=== PATIENT | male | born 1990 | race Hispanic/Latino ===

== ENCOUNTER 2016-10-09 22:11 | Emergency (ER) | payer SELFPAY ==
[2016-10-09] MEDS ORDERED: GEODON IM ONE (23:51)
--- NOTE | 2016-10-10 00:05 | Emergency Department Report ---
ED Psych HPI - General Chief Complaint: Recheck/Abnormal Lab/Rx Stated Complaint: MH EVAL Time Seen by Provider: 10/09/16 23:27 Source: patient Mode of arrival: Ambulatory Limitations: No Limitations - History of Present Illness Initial Comments: 25-year-old male presents to the emergency department via EMS for mental health evaluation. Patient states that he has been out of his medication for 4 days. He states he does not have the money to get the medication. Patient reports having suicidal thoughts. He states that he attempted to commit suicide by jumping in front of a moving vehicle. There are no other complaints. MD Complaint: suicidal ideation -: Gradual, days(s) (4) Associated Psychiatric Symptoms: suicidal ideation History of same: Yes Quality: constant Improves With: none Worsens With: none Context: not taking psychiatric Associated Symptoms: denies other symptoms Treatments Prior to Arrival: none If Self Harm: admits thoughts of, has plan, has acted on plan - Related Data Home Medications Medication Instructions Recorded Confirmed Last Taken Citalopram [celeXA] 20 mg PO QDAY 07/22/16 07/22/16 Unknown traZODone [Desyrel] 100 mg PO QHS 07/22/16 07/22/16 Unknown Allergies Allergy/AdvReac Type Severity Reaction Status Date / Time No Known Allergies Allergy Verified 09/24/13 20:06 ED Review of Systems ROS: Stated complaint: MH EVAL Other details as noted in HPI Comment: All other systems reviewed and negative Psychiatric: as per HPI, suicidal thoughts ED Past Medical Hx - Past Medical History Previous Medical History?: Yes Hx Hypertension: No Hx Heart Attack/AMI: No Hx Congestive Heart Failure: No Hx Diabetes: No Hx Deep Vein Thrombosis: No Hx Pulmonary Embolism: No Hx Liver Disease: No Hx Renal Disease: No Hx Arthritis: No Hx Seizures: No Hx Kidney Stones: No Hx Psychiatric Treatment: Yes (BIPOLAR/SCHIZO/PANIC ATTACKS/ANXIETY/DEPRESSION) Hx Asthma: No Hx COPD: No Hx Tuberculosis: No Hx Dementia: No Hx HIV: No - Surgical History Hx Coronary Stent: No Hx Pacemaker: No Hx Internal Defibrillator: No - Family History Family history: no significant - Social History Smoking Status: Never Smoker Substance Use Type: Alcohol - Medications Home Medications: Home Medications Medication Instructions Recorded Confirmed Last Taken Type Citalopram [celeXA] 20 mg PO QDAY 07/22/16 07/22/16 Unknown History traZODone [Desyrel] 100 mg PO QHS 07/22/16 07/22/16 Unknown History ED Physical Exam - General Limitations: No Limitations General appearance: alert, appears intoxicated - Head Head exam: Present: atraumatic, normocephalic - Eye Eye exam: Present: normal appearance, PERRL, EOMI - ENT ENT exam: Present: normal exam, normal orophraynx, mucous membranes moist - Neck Neck exam: Present: normal inspection, full ROM. Absent: tenderness - Respiratory Respiratory exam: Present: normal lung sounds bilaterally. Absent: respiratory distress - Cardiovascular Cardiovascular Exam: Present: regular rate, normal rhythm, normal heart sounds - GI/Abdominal GI/Abdominal exam: Present: soft, normal bowel sounds. Absent: distended, tenderness - Extremities Exam Extremities exam: Present: normal inspection, full ROM. Absent: tenderness - Back Exam Back exam: Present: normal inspection, full ROM. Absent: tenderness - Neurological Exam Neurological exam: Present: alert, oriented X3. Absent: motor sensory deficit - Psychiatric Psychiatric exam: Present: flat affect, suicidal ideation, other (Paranoid thoughts (repeatedly asks if I am going to kill him)) - Skin Skin exam: Present: warm, dry, intact ED Course Vital Signs 10/09/16 23:00 Temperature 97.8 F Pulse Rate 125 H Respiratory 16 Rate Blood Pressure 120/72 O2 Sat by Pulse 97 Oximetry - Reevaluation(s) Reevaluation #1: 10/10/16 00:04 Form 1013 has been signed and placed on the patient's chart. Labs have been ordered. Patient will be assessed by mental health for inpatient placement. ED Medical Decision Making - Differential Diagnosis medication noncompliance, schizophrenia, suicidal ideation Critical care attestation.: If time is entered above; I have spent that time in minutes in the direct care of this critically ill patient, excluding procedure time. ED Disposition Clinical Impression: Suicidal ideations Schizophrenia Qualifiers: Schizophrenia type: unspecified Qualified Code(s): F20.9 - Schizophrenia, unspecified Disposition: DC/TX PSY HOSP/PSY UNIT Is pt being admited?: No Condition: Stable Time of Disposition: 00:06
[2016-10-10 00:40] LABS: Urine Drugs of Abuse Note Disclamer
[2016-10-10 00:43] LABS: Basophils % (Auto) 0.7 % (0.0-1.8); Eosinophils % (Auto) 2.1 % (0.0-4.3); Hematocrit 45.7 % (35.5-45.6); Hemoglobin 15.6 gm/dl (11.8-15.2); Mean Corpuscular HGB Conc 34 % (32-34); Mean Corpuscular Hemoglobin 30 pg (28-32); Mean Corpuscular Volume 88 fl (84-94); Platelet Count 209 K/mm3 (140-440); Red Blood Count 5.17 M/mm3 (3.65-5.03); Red Cell Distribution Width 12.6 % (13.2-15.2); White Blood Count 11.2 K/mm3 (4.5-11.0)
[2016-10-10 01:03] LABS: Bilirubin,Urine NEG (Negative); Blood,Urine NEG (Negative); Ketones,Urine NEG (Negative); Leukocyte Esterase,Urine NEG (Negative); Mucus,Urine FEW /HPF; Nitrite,Urine NEG (Negative); Protein,Urine <15 mg/dL mg/dL (Negative); Urobilinogen,Urine < 2.0 mg/dL (<2.0)
[2016-10-10 01:04] LABS: Anion Gap 20 mmol/L; BUN/Creatinine Ratio 16.25; Blood Urea Nitrogen 13 mg/dL (9-20); Calcium 9.4 mg/dL (8.4-10.2); Carbon Dioxide 28 mmol/L (22-30); Chloride 95.3 mmol/L (98-107); Glucose 121 mg/dL (75-100); Potassium 3.8 mmol/L (3.6-5.0); Sodium 139 mmol/L (137-145)
[2016-10-10] MEDS: celeXA PO SCH (09:44)
--- NOTE | 2016-10-10 17:03 | Emergency Department Report ---
Blank Doc - Documentation Documentation: Nursing note and vital signs reviewed. Patient is awaiting acceptance. Patient is stable.
[2016-10-10] MEDS: DESYREL PO SCH (23:10)
--- NOTE | 2016-10-11 05:44 | Event Note ---
Date: 10/11/16 Vital signs reviewed. No recent events. Awaiting psychiatric placement. Vital Signs 10/09/16 10/10/16 10/10/16 23:00 07:16 07:30 Temperature 97.8 F 98.3 F Pulse Rate 125 H 86 Respiratory 16 20 20 Rate Blood Pressure 120/72 Blood Pressure 134/84 [Right] O2 Sat by Pulse 97 98 98 Oximetry 10/10/16 23:11 Temperature 97.8 F Pulse Rate 84 Respiratory 17 Rate Blood Pressure Blood Pressure 122/84 [Right] O2 Sat by Pulse 99 Oximetry
[2016-10-11] MEDS: celeXA PO SCH (11:07)
[2016-10-11 21:19] VITALS: BP 120/76
[2016-10-11] MEDS: DESYREL PO SCH (22:11)
== END 2016-10-12 00:42 ==
LOC: EEVIPCON 22:11 → ED 22:11
DX: R45.851 Suicidal ideations (principal); F20.9 Schizophrenia, unspecified; F31.9 Bipolar disorder, unspecified; F41.9 Anxiety disorder, unspecified
CPT/HCPCS: 36415; 80048; 80307; 81001; 85025; 93005; 93010; 99285; G0480; 80320

== ENCOUNTER 2016-10-15 13:10 | Emergency (ER) | payer SELFPAY | END 2016-10-15 13:28 | disposition left against medical advice (07) | LOC: ED 13:10 | DX: Z53.21 Procedure and treatment not carried out due to patient leaving prior to being seen by health care provider (principal) ==

== ENCOUNTER 2016-12-21 16:15 | Emergency (ER) | payer OTHER ==
[2016-12-21] MEDS ORDERED: ATIVAN ONE (17:18)
[2016-12-21] MEDS ORDERED: NACL 0.9% 1000 ML 1,000 ML ONE (17:19)
[2016-12-21] MEDS ORDERED: ATIVAN IV ONE ×2 (17:23→20:00)
[2016-12-21] MEDS ORDERED: NACL 0.9% 1000 ML 1,000 ML IV ONE ×2 (17:23→19:49)
--- NOTE | 2016-12-21 17:40 | Emergency Department Report ---
HPI - General Chief Complaint: Overdose Time Seen by Provider: 12/21/16 16:51 - HPI HPI: Room 18 The patient is a 26-year-old male presenting with a chief complaint of polysubstance abuse. The patient was brought in by EMS states he came because he needed his psych meds in because he's been eating methamphetamines. Patient appears confused and excited. Patient acknowledges he has had suicidal ideation and believes he last thought of harming himself sometime today. Patient denies any active attempts Location: Mental state Duration: [see above] Quality: Anxious, suicidal Severity: Severe Modifying factors: [see above] Context: [see above] Mode of transportation: EMS ED Past Medical Hx - Past Medical History Hx Psychiatric Treatment: Yes (BIPOLAR/SCHIZO/PANIC ATTACKS/ANXIETY/DEPRESSION) - Family History Family history: no significant - Social History Smoking Status: Current Every Day Smoker (one pack per day) Substance Use Type: Alcohol (occasional), Marijuana, Methamphetamines - Medications Home Medications: Home Medications Medication Instructions Recorded Confirmed Last Taken Type Citalopram [celeXA] 20 mg PO QDAY 07/22/16 10/10/16 Unknown History traZODone [Desyrel] 100 mg PO QHS 07/22/16 10/10/16 Unknown History ED Review of Systems ROS: Stated complaint: DRUG ABUSE/DETOX Other details as noted in HPI Comment: All other systems reviewed and negative Constitutional: denies: chills, fever Eyes: denies: eye pain, eye discharge, vision change ENT: denies: ear pain, throat pain Respiratory: denies: cough, shortness of breath, wheezing Cardiovascular: palpitations Endocrine: no symptoms reported Gastrointestinal: denies: abdominal pain, nausea, diarrhea Genitourinary: denies: urgency, dysuria Musculoskeletal: denies: back pain, joint swelling, arthralgia Skin: denies: rash, lesions Neurological: confusion Psychiatric: suicidal thoughts Hematological/Lymphatic: denies: easy bleeding, easy bruising Physical Exam - Physical Exam Vital Signs: Vital Signs 12/21/16 16:37 Temperature 98.2 F Pulse Rate 126 H Respiratory 16 Rate Blood Pressure 141/96 Blood Pressure 141/96 [Right] O2 Sat by Pulse 97 Oximetry Physical Exam: GENERAL: The patient is well-developed well-nourished male standing in room appearing agitated and anxious HEENT: Normocephalic. Atraumatic. Extraocular motions are intact. Patient has moist mucous membranes. NECK: Supple. Trachea midline CHEST/LUNGS: Clear to auscultation. There is no respiratory distress noted. HEART/CARDIOVASCULAR: Regular. There is tachycardia. There is no gallop rub or murmur. ABDOMEN: Abdomen is soft, nontender. Patient has normal bowel sounds. There is no abdominal distention. SKIN: There is no rash. There is no edema. There is no diaphoresis. NEURO: The patient is awake, alert, and oriented. The patient is admittedly cooperative. The patient appears to have pressured speech. The patient has normal gait MUSCULOSKELETAL: There is no evidence of acute injury. ED Course Vital Signs 12/21/16 16:37 Temperature 98.2 F Pulse Rate 126 H Respiratory 16 Rate Blood Pressure 141/96 Blood Pressure 141/96 [Right] O2 Sat by Pulse 97 Oximetry ED Medical Decision Making - Lab Data Result diagrams: 12/21/16 17:36 12/21/16 17:44 Laboratory Tests 12/21/16 12/21/16 12/21/16 17:36 17:36 17:36 WBC 7.1 RBC 5.06 H Hgb 15.1 Hct 45.0 MCV 89 MCH 30 MCHC 34 RDW 12.7 L Plt Count 201 Lymph % (Auto) 11.6 L Gilliam % (Auto) 5.3 Eos % (Auto) 0.2 Baso % (Auto) 0.5 Lymph # 0.8 L Gilliam # 0.4 Eos # 0.0 Baso # 0.0 Seg Neutrophils % 82.4 H Seg Neutrophils # 5.9 Sodium Potassium Chloride Carbon Dioxide Anion Gap BUN Creatinine Estimated GFR BUN/Creatinine Ratio Glucose Calcium Total Bilirubin AST ALT Alkaline Phosphatase Total Creatine Kinase CK-MB (CK-2) CK-MB (CK-2) Rel Index Troponin T Total Protein Albumin Albumin/Globulin Ratio Urine Color Urine Turbidity Urine pH Ur Specific [place] Urine Protein Urine Glucose (UA) Urine Ketones Urine Blood Urine Nitrite Urine Bilirubin Urine Urobilinogen Ur Leukocyte Esterase Urine WBC (Auto) Urine RBC (Auto) U Epithel Cells (Auto) Urine Mucus Salicylates < 0.3 L Acetaminophen < 15.0 Plasma/Serum Alcohol 12/21/16 12/21/16 12/21/16 17:43 17:44 17:44 WBC RBC Hgb Hct MCV MCH MCHC RDW Plt Count Lymph % (Auto) Gilliam % (Auto) Eos % (Auto) Baso % (Auto) Lymph # Gilliam # Eos # Baso # Seg Neutrophils % Seg Neutrophils # Sodium 142 Potassium 4.3 Chloride 100.4 Carbon Dioxide 26 Anion Gap 20 BUN 11 Creatinine 1.0 Estimated GFR > 60 BUN/Creatinine Ratio 11.00 Glucose 99 Calcium 9.8 Total Bilirubin 0.9 AST 83 H ALT 105 H Alkaline Phosphatase 89 Total Creatine Kinase 113 CK-MB (CK-2) 3.0 CK-MB (CK-2) Rel Index 2.6 Troponin T < 0.010 Total Protein 7.8 Albumin 4.6 Albumin/Globulin Ratio 1.4 Urine Color Urine Turbidity Urine pH Ur Specific [place] Urine Protein Urine Glucose (UA) Urine Ketones Urine Blood Urine Nitrite Urine Bilirubin Urine Urobilinogen Ur Leukocyte Esterase Urine WBC (Auto) Urine RBC (Auto) U Epithel Cells (Auto) Urine Mucus Salicylates Acetaminophen Plasma/Serum Alcohol < 0.01 12/21/16 19:00 WBC RBC Hgb Hct MCV MCH MCHC RDW Plt Count Lymph % (Auto) Gilliam % (Auto) Eos % (Auto) Baso % (Auto) Lymph # Gilliam # Eos # Baso # Seg Neutrophils % Seg Neutrophils # Sodium Potassium Chloride Carbon Dioxide Anion Gap BUN Creatinine Estimated GFR BUN/Creatinine Ratio Glucose Calcium Total Bilirubin AST ALT Alkaline Phosphatase Total Creatine Kinase CK-MB (CK-2) CK-MB (CK-2) Rel Index Troponin T Total Protein Albumin Albumin/Globulin Ratio Urine Color Yellow Urine Turbidity Clear Urine pH 6.0 Ur Specific [place] 1.020 Urine Protein 30 mg/dl Urine Glucose (UA) Neg Urine Ketones Neg Urine Blood Sm Urine Nitrite Neg Urine Bilirubin Neg Urine Urobilinogen < 2.0 Ur Leukocyte Esterase Neg Urine WBC (Auto) 2.0 Urine RBC (Auto) 15.0 U Epithel Cells (Auto) < 1.0 Urine Mucus Few Salicylates Acetaminophen Plasma/Serum Alcohol - EKG Data -: EKG Interpreted by Me EKG shows normal: sinus rhythm Rate: tachycardia (126 bpm) - EKG Data When compared to previous EKG there are: no significant change - Differential Diagnosis substance abuse, suicidal ideation, schizophrenia Critical care attestation.: If time is entered above; I have spent that time in minutes in the direct care of this critically ill patient, excluding procedure time. ED Disposition Clinical Impression: Polysubstance abuse, Substance-induced disorder, Schizophrenia Disposition: DC/TX PSY HOSP/PSY UNIT Is pt being admited?: No Does the pt Need Aspirin: No Condition: Stable Referrals: PRIMARY CARE, [Primary Care Provider] - 3-5 Days
[2016-12-21 17:58] LABS: Basophils % (Auto) 0.5 % (0.0-1.8); Eosinophils % (Auto) 0.2 % (0.0-4.3); Hemoglobin 15.1 gm/dl (11.8-15.2); Mean Corpuscular HGB Conc 34 % (32-34); Mean Corpuscular Hemoglobin 30 pg (28-32); Mean Corpuscular Volume 89 fl (84-94); Platelet Count 201 K/mm3 (140-440); Red Blood Count 5.06 M/mm3 (3.65-5.03); Red Cell Distribution Width 12.7 % (13.2-15.2); White Blood Count 7.1 K/mm3 (4.5-11.0)
[2016-12-21 18:21] LABS: Alanine Aminotransferase 105 units/L (7-56); Albumin 4.6 g/dL (3.9-5); Albumin/Globulin Ratio 1.4 %; Alkaline Phosphatase 89 units/L (35-129); Anion Gap 20 mmol/L; Bilirubin,Total 0.9 mg/dL (0.1-1.2); Blood Urea Nitrogen 11 mg/dL (9-20); Calcium 9.8 mg/dL (8.4-10.2); Carbon Dioxide 26 mmol/L (22-30); Chloride 100.4 mmol/L (98-107); Glucose 99 mg/dL (75-100); Potassium 4.3 mmol/L (3.6-5.0); Sodium 142 mmol/L (137-145); Total Protein 7.8 g/dL (6.3-8.2)
[2016-12-21 18:22] LABS: Creatine Kinase 113 units/L (55-170)
[2016-12-21 19:09] LABS: Urine Drugs of Abuse Note Disclamer
[2016-12-21 19:37] LABS: Bilirubin,Urine NEG (Negative); Blood,Urine SM (Negative); Ketones,Urine NEG (Negative); Leukocyte Esterase,Urine NEG (Negative); Mucus,Urine FEW /HPF; Nitrite,Urine NEG (Negative); Urobilinogen,Urine < 2.0 mg/dL (<2.0)
[2016-12-21] MEDS ORDERED: ATIVAN IM PRN (19:49)
[2016-12-21] MEDS ORDERED: HALDOL IM PRN (19:49)
--- NOTE | 2016-12-22 20:07 | Consultation ---
History of Present Illness - Reason for Consult Consult date: 12/22/16 Reason for consult: psychiatric evaluation - Chief Complaint Chief complaint: "meth" 26 year old white male seen in the ER for psychiatric evaluation. He nodded his head in response to answers and mumbled answers to some. He indicated he is sleeping as a result of coming down from methamphetamine. He states he wants help for addiction to methamphetamine. Per the record, he ingested a handful of meth after telling his stepmother his is done with it. It is unclear what the context of this statement is. He has been noncompliant with celexa and remeron.He denied SI and HI to the supervisor shipfitters earlier in the day. Medications and Allergies Allergies Allergy/AdvReac Type Severity Reaction Status Date / Time No Known Allergies Allergy Verified 12/21/16 16:47 Home Medications Medication Instructions Recorded Confirmed Last Taken Type Citalopram [celeXA] 20 mg PO QDAY 07/22/16 12/22/16 Unknown History traZODone [Desyrel] 100 mg PO QHS 07/22/16 12/22/16 Unknown History Active Meds: Active Medications Haloperidol Lactate (Haldol) 10 mg IM Q8H PRN PRN Reason: Agitation Lorazepam (Ativan) 2 mg IM Q8H PRN PRN Reason: Agitation Past psychiatric history - Past Medical History Past Medical History: No medical history - past Psychiatric treatment and history Psych: Anxiety psychiatric treatment history: SA: 1997 & 1999- attempted to hang himself Previous treatment: [facility]. He was in the ER at 2 previous times this year for mental health/substance use complaints previously treated with goedon and risperdal-"made loopy" - Social History Social history: smoking, alcohol abuse (unknown amount, denies daily use) Mental Status Exam - Vital signs Last Vital Signs Temp 98.2 F 12/21/16 16:37 Pulse 62 12/22/16 06:17 Resp 18 12/22/16 06:17 BP 106/69 12/22/16 06:17 Pulse Ox 98 12/22/16 02:39 - Exam Orientation: place, person Affect: other (drowsy) Mood: other (unable to assess) Thought content: other (unable to assess) Perceptions: other (unable to assess) Speech: other (mumbling) Concentration: unable to pay attention (related to drowsiness) Motor activity: lethargic Level of consciousness: sedated Sleep Symptoms: Sleepiness Interaction: other (attempted to participate in the interview but kept closing his eyes) Results Result Diagrams: 12/21/16 17:36 12/21/16 17:44 All other labs normal. Assessment and Plan Assessment and plan: Impression: Methamphetamine use disorder Unable to obtain a thorough history or assessment of current mood symptoms due to drowsiness. Recommendation: Reevaluation in 24 hours to determine course of treatment/further recommendations Avoid giving sedating medications
--- NOTE | 2016-12-22 20:23 | Emergency Department Report ---
Blank Doc - Documentation Documentation: Vital Signs - 24 hr 12/21/16 12/21/16 12/22/16 21:44 23:43 02:39 Pulse Rate 84 82 71 Respiratory 20 18 18 Rate Blood Pressure 115/64 112/67 120/81 [Right] O2 Sat by Pulse 96 98 98 Oximetry 12/22/16 06:17 Pulse Rate 62 Respiratory 18 Rate Blood Pressure 106/69 [Right] O2 Sat by Pulse Oximetry Vital signs reviewed. Patient resting comfortably and is currently calm. Awaiting placement/psychiatric evaluation.
--- NOTE | 2016-12-23 14:33 | Progress Note ---
Subjective - Reason for Consult Consult date: 12/23/16 Reason for consult: acute methampetamine intoxication - Chief Complaint Chief complaint: "meth" 26 year old white male seen in the ER for psychiatric evaluation. He nodded his head in response to answers and mumbled answers to some. He indicated he is sleeping as a result of coming down from methamphetamine. He states he wants help for addiction to methamphetamine. Per the record, he ingested a handful of meth after telling his stepmother his is done with it. It is unclear what the context of this statement is. He has been noncompliant with celexa and remeron.He denied SI and HI to the quality assurance assessor earlier in the day. Mental Status Exam - Vital signs Last Vital Signs Temp 98.2 F 12/23/16 10:00 Pulse 99 H 12/23/16 10:00 Resp 18 12/23/16 11:21 BP 122/85 12/23/16 10:00 Pulse Ox 98 12/23/16 11:21 Assessment and Plan Patient currently denies suicidal or homicidal thoughts. Patient notes that he is ready to abstain from methamphetamines in the future. We discussed in detail the options of engaging in outpatient care. Patient is willing to go to regular and a meetings at the current time. General Appearance: casually dressed, no acute distress Sensorium/Consciousness: alert and responding to external stimuli; clear Orientation: person, place, time and situation Eye Contact: limited Attitude / Behavior: Cooperative Psychomotor & Musculoskeletal Activity: WNL Mood: ok Affect: constricted, limited range Speech / Language: fluent, with normal rate/rhythm/tone Thought Processes: organized, logical, linear Thought Content: no SI, no HI Perception: no AVH Insight: limited Judgement: Improving Capacity for ADLs: independent Plan: 1. Rescind 1013 2. Refer patient to outpatient substance abuse program
[2016-12-24 08:22] VITALS: BP 110/83
--- NOTE | 2016-12-24 11:17 | Progress Note ---
Subjective - Reason for Consult Consult date: 12/24/16 Reason for consult: Psychiatry Follow-up - Chief Complaint Chief complaint: "I want to do better" 26 year old white male seen in the ER for psychiatric evaluation. Today patient is calm and cooperative during assessment. He states he wants help for addiction to methamphetamine. He denies SI/HI's, AVH's, sleep disturbance or depression. He stated that his appetite is "fine." Mental Status Exam - Vital signs Last Vital Signs Temp 98.4 F 12/24/16 08:21 Pulse 114 H 12/24/16 08:21 Resp 16 12/24/16 08:21 BP 110/83 12/24/16 08:21 Pulse Ox 100 12/24/16 08:21 - Exam Narrative exam: MSE: Appearance: calm, cooperative Behavior: good eye contact Speech: regular rate and tone Mood: "I am good today" Affect: euthymic Thought Process: linear Thought Content: denies SI/HI's and AVH's Motor Activity: ambulatory Cognition: A/Ox3 Insight: fair Judgment: fair Assessment and Plan Impression: 26 year old white male seen in the ER for psychiatric evaluation. Today patient is calm and cooperative during assessment. He states he wants help for addiction to methamphetamine. He denies SI/HI's, AVH's, sleep disturbance or depression. He stated that his appetite is "fine." Collateral - Spoke with his stepbrother Meño Cruz who he resides with. He will come and picker / packer patient. Also, he support the patient's desire to get help for his methamphetamine addiction. Recommendation/Plan: Rescind 1013 and gave patient outpatient psy services information for substance abuse ([facility]). Discussed generalized coping skills with patient.
== END 2016-12-24 13:00 | disposition home or self-care (01) ==
LOC: ED 16:15 → EEVIPCON 16:15 → ED 12-24 13:00
DX: F20.9 Schizophrenia, unspecified (principal); F19.10 Other psychoactive substance abuse, uncomplicated; Z76.5 Malingerer [conscious simulation]; F17.200 Nicotine dependence, unspecified, uncomplicated
CPT/HCPCS: 36415; 80053; 80307; 81001; 82550; 82553; 84484; 85025; 93005; 93010; 96361; 96374; 96376; 99285; G0480; J2060; J7030; 80320

== ENCOUNTER 2017-01-13 08:49 | Emergency (ER) | payer SELFPAY ==
[2017-01-13 09:01] VITALS: BP 151/102
== END 2017-01-13 08:59 | disposition left against medical advice (07) ==
LOC: ED 08:49
DX: Z76.0 Encounter for issue of repeat prescription (principal); Z53.21 Procedure and treatment not carried out due to patient leaving prior to being seen by health care provider

== ENCOUNTER 2017-01-24 03:13 | Emergency (ER) | payer SELFPAY ==
[2017-01-24 05:21] LABS: Urine Drugs of Abuse Note Disclamer
[2017-01-24 05:29] LABS: Basophils % (Auto) 0.7 % (0.0-1.8); Eosinophils % (Auto) 0.4 % (0.0-4.3); Hematocrit 41.8 % (35.5-45.6); Hemoglobin 14.2 gm/dl (11.8-15.2); Mean Corpuscular HGB Conc 34 % (32-34); Mean Corpuscular Hemoglobin 30 pg (28-32); Mean Corpuscular Volume 88 fl (84-94); Platelet Count 132 K/mm3 (140-440); Red Blood Count 4.76 M/mm3 (3.65-5.03); Red Cell Distribution Width 13.1 % (13.2-15.2); White Blood Count 6.9 K/mm3 (4.5-11.0)
--- NOTE | 2017-01-24 05:32 | Emergency Department Report ---
ED Psych HPI - General Chief Complaint: Psych Stated Complaint: MH EVAL/DEPRESSION Time Seen by Provider: 01/24/17 05:23 Source: EMS Mode of arrival: Ambulatory - History of Present Illness Initial Comments: 26-year-old male with history of schizophrenia and drug abuse presenting today because of depression and suicidal ideation. Patient states that he has a long history of schizophrenia and was last hospitalized in a mental health institution approximately 3 months ago. States that recently he has gone back to using drugs and had used methamphetamine as well as oral opioid medications including Percocet and Raymond in the last 1 day. He states that prior to coming to the emergency room he is walking down the middle of the street and had thoughts of jumping in front of cars to try to kill himself. He's had these thoughts in the past as well but has never acted on them. He is also supposed to be on trazodone, Seroquel and Celexa and is out of both trazodone and Seroquel. Patient is also complaining about some auditory hallucinations over the last few days. - Related Data Home Medications Medication Instructions Recorded Confirmed Last Taken Citalopram [celeXA] 20 mg PO QDAY 07/22/16 01/24/17 Unknown traZODone [Desyrel] 150 mg PO QHS 07/22/16 01/24/17 Unknown QUEtiapine [SEROquel] 200 mg PO QDAY 01/24/17 01/24/17 Unknown Allergies Allergy/AdvReac Type Severity Reaction Status Date / Time No Known Allergies Allergy Verified 01/13/17 08:57 ED Review of Systems ROS: Stated complaint: MH EVAL/DEPRESSION Other details as noted in HPI Comment: All other systems reviewed and negative Constitutional: denies: chills, fever Eyes: denies: eye pain Respiratory: denies: cough Cardiovascular: denies: chest pain Gastrointestinal: denies: vomiting Genitourinary: denies: dysuria Skin: denies: rash Psychiatric: depression, auditory hallucinations, suicidal thoughts ED Past Medical Hx - Past Medical History Previous Medical History?: Yes Hx Hypertension: No Hx Heart Attack/AMI: No Hx Congestive Heart Failure: No Hx Diabetes: No Hx Deep Vein Thrombosis: No Hx Pulmonary Embolism: No Hx Liver Disease: No Hx Renal Disease: No Hx Arthritis: No Hx Seizures: No Hx Kidney Stones: No Hx Psychiatric Treatment: Yes (BIPOLAR/SCHIZO/PANIC ATTACKS/ANXIETY/DEPRESSION) Hx Asthma: No Hx COPD: No Hx Tuberculosis: No Hx Dementia: No Hx HIV: No - Surgical History Hx Coronary Stent: No Hx Pacemaker: No Hx Internal Defibrillator: No - Social History Smoking Status: Current Every Day Smoker - Medications Home Medications: Home Medications Medication Instructions Recorded Confirmed Last Taken Type Citalopram [celeXA] 20 mg PO QDAY 07/22/16 01/24/17 Unknown History traZODone [Desyrel] 150 mg PO QHS 07/22/16 01/24/17 Unknown History QUEtiapine [SEROquel] 200 mg PO QDAY 01/24/17 01/24/17 Unknown History ED Physical Exam - General Limitations: No Limitations General appearance: alert, in no apparent distress - Head Head exam: Present: atraumatic - Eye Eye exam: Present: normal appearance Pupils: Present: normal accommodation - ENT ENT exam: Present: normal exam - Neck Neck exam: Present: normal inspection - Respiratory Respiratory exam: Present: normal lung sounds bilaterally. Absent: respiratory distress, wheezes - Cardiovascular Cardiovascular Exam: Present: regular rate, normal rhythm - GI/Abdominal GI/Abdominal exam: Present: soft. Absent: distended, tenderness - Neurological Exam Neurological exam: Present: alert, oriented X3 - Psychiatric Psychiatric exam: Present: depressed, flat affect, suicidal ideation - Skin Skin exam: Present: intact. Absent: rash ED Course Vital Signs 01/24/17 01/24/17 04:15 04:17 Temperature 98.4 F Pulse Rate 106 H Respiratory 18 18 Rate Blood Pressure 132/93 [Left] O2 Sat by Pulse 97 97 Oximetry ED Medical Decision Making - Lab Data Result diagrams: 01/24/17 04:15 01/24/17 04:15 - Medical Decision Making 1013 placed due to SI labs and ua for medical clearance labs unremarkable u tox shows + for multiple substances medically cleared for psych placement Critical care attestation.: If time is entered above; I have spent that time in minutes in the direct care of this critically ill patient, excluding procedure time. ED Disposition Clinical Impression: Suicidal ideation, Polysubstance abuse Psychosis Qualifiers: Psychosis type: schizophrenia Schizophrenia type: unspecified Qualified Code(s) : F20.9 - Schizophrenia, unspecified Disposition: DC/TX PSY HOSP/PSY UNIT Is pt being admited?: No Does the pt Need Aspirin: No Condition: Stable Referrals: PRIMARY CARE, [Primary Care Provider] - 3-5 Days
[2017-01-24 05:46] LABS: Anion Gap 16 mmol/L; BUN/Creatinine Ratio 11.11; Blood Urea Nitrogen 10 mg/dL (9-20); Calcium 8.9 mg/dL (8.4-10.2); Carbon Dioxide 27 mmol/L (22-30); Chloride 98.8 mmol/L (98-107); Glucose 122 mg/dL (75-100); Potassium 3.5 mmol/L (3.6-5.0); Sodium 138 mmol/L (137-145)
[2017-01-24 06:16] LABS: Bacteria,Urine 2+ /HPF (Negative); Bilirubin,Urine NEG (Negative); Blood,Urine SM (Negative); Ketones,Urine NEG (Negative); Leukocyte Esterase,Urine NEG (Negative); Mucus,Urine FEW /HPF; Nitrite,Urine NEG (Negative); Sperm,Urine FEW /HPF (NP); Urobilinogen,Urine < 2.0 mg/dL (<2.0)
--- NOTE | 2017-01-24 14:08 | Consultation ---
History of Present Illness - Reason for Consult Consult date: 01/24/17 Reason for consult: psychiatric evaluation - Chief Complaint Chief complaint: "Hearing voices" 26-year-old male with history of schizophrenia and drug abuse presenting because of depression and suicidal ideation. Per the record the patient stated that he has a long history of schizophrenia and was last hospitalized in a mental health institution approximately 3 months ago. He was unable to recall hospitalizations during the psychiatric evaluation. Patient is guarded on exam and minimally answered questions. He reports being depressed and lost the motivation to continue seeing the doctor about his psychiatric medications. His most recent psychiatric medications are trazodone, Seroquel and Celexa. Once off of them he resorted to using xanax, smoking methamphetamine, marijuana , and oral opioid medications including Percocet and [place], and drinking G ( which he reports is made with floor stripper). Last use was yesterday. He wants to be off drugs. He reports auditory hallucinations but does not remember being found in the road. He denies drinking alcohol. Medications and Allergies Allergies Allergy/AdvReac Type Severity Reaction Status Date / Time No Known Allergies Allergy Verified 01/13/17 08:57 Home Medications Medication Instructions Recorded Confirmed Last Taken Type Citalopram [celeXA] 20 mg PO QDAY 07/22/16 01/24/17 Unknown History traZODone [Desyrel] 150 mg PO QHS 07/22/16 01/24/17 Unknown History QUEtiapine [SEROquel] 200 mg PO QDAY 01/24/17 01/24/17 Unknown History Past psychiatric history - Past Medical History Past Medical History: No medical history Past Surgical History: No surgical history - past Psychiatric treatment and history Psych: Addictions, Schizophrenia - Social History Social history: single (no children), prescription drug abuse, other (lives with others who use drugs. He works with [employer]) Mental Status Exam - Vital signs Last Vital Signs Temp 98.1 F 01/24/17 09:05 Pulse 82 01/24/17 09:05 Resp 16 01/24/17 09:05 BP 106/68 01/24/17 09:05 Pulse Ox 98 01/24/17 09:05 - Exam Narrative exam: thought process was limited in scope Orientation: place, person Affect: depressed, other (guarded) Mood: congruent with affect Thought content: other (auditory hallucinations (would not describe). told ER physician he wanted to jump in traffic. found in road. No HI) Perceptions: auditory, hallucinations Speech: minimal response Concentration: other (unable to assess) Motor activity: normal Level of consciousness: alert Memory: Recent Impaired Sleep Symptoms: Difficulty Falling Asleep Interaction: guarded Results Result Diagrams: 01/24/17 04:15 01/24/17 04:15 Abnormal lab results 01/24/17 01/24/17 01/24/17 Range/Units 04:15 04:15 04:15 RDW 13.1 L (13.2-15.2) % Plt Count 132 L (140-440) K/mm3 Seg Neutrophils % 74.7 H (40.0-70.0) % Potassium 3.5 L (3.6-5.0) mmol/L Glucose 122 H (75-100) mg/dL Salicylates < 0.3 L (2.8-20.0) mg/dL All other labs normal. Assessment and Plan Assessment and plan: Impression: Depressive and psychotic symptoms, possible related to illicit substance use, mood disorder, or schizophrenia Symptoms are impairing daily functioning and patient is at risk of suicide Schizophrenia by history Amphetamine use disorder (methamphetamine), cannabis use disorder, opioid use, and abuse of Gamma butyrolactone (industrial solvent) Recommendation: 1013 and transfer to inpatient psychiatric facility
[2017-01-24 17:41] VITALS: BP 123/69
== END 2017-01-24 17:40 ==
LOC: EEVIPCON 03:13 → ED 03:13
DX: R45.851 Suicidal ideations (principal); F19.10 Other psychoactive substance abuse, uncomplicated; F17.200 Nicotine dependence, unspecified, uncomplicated
CPT/HCPCS: 36415; 80048; 80307; 81001; 84443; 85025; 99285; G0480; 80320

== ENCOUNTER 2017-01-30 21:10 | Inpatient (IN) | payer SELFPAY ==
[2017-01-30] MEDS ORDERED: VALIUM ONE (21:22)
[2017-01-30] MEDS ORDERED: BENADRYL ONE (21:32)
[2017-01-30] MEDS ORDERED: NACL 0.9% 1000 ML 1,000 ML ONE (21:33)
[2017-01-30] MEDS ORDERED: NACL 0.9% 1000 ML 1,000 ML IV ONE ×3 (21:38→23:06)
[2017-01-30] MEDS ORDERED: BABY ASPIRIN PO ONE (21:38)
[2017-01-30] MEDS ORDERED: ZOFRAN IV ONE (21:38)
[2017-01-30] MEDS ORDERED: VALIUM IV ONE ×2 (21:40→22:42)
[2017-01-30] MEDS ORDERED: SUBLIMAZE ONE (21:47)
[2017-01-30 22:09] LABS: Basophils % (Auto) 0.4 % (0.0-1.8); Eosinophils % (Auto) 0.1 % (0.0-4.3); Hematocrit 45.9 % (35.5-45.6); Hemoglobin 15.2 gm/dl (11.8-15.2); Mean Corpuscular HGB Conc 33 % (32-34); Mean Corpuscular Hemoglobin 30 pg (28-32); Mean Corpuscular Volume 90 fl (84-94); Platelet Count 184 K/mm3 (140-440); Red Blood Count 5.12 M/mm3 (3.65-5.03); Red Cell Distribution Width 13.5 % (13.2-15.2); White Blood Count 10.8 K/mm3 (4.5-11.0)
[2017-01-30 22:18] LABS: INR 1.11 (0.87-1.13)
[2017-01-30 22:20] LABS: Partial Thromboplastin Time 24.1 Sec. (24.2-36.6)
[2017-01-30 22:30] LABS: Alanine Aminotransferase 171 units/L (7-56); Albumin 4.5 g/dL (3.9-5); Albumin/Globulin Ratio 1.5 %; Alkaline Phosphatase 80 units/L (35-129); Anion Gap 25 mmol/L; BUN/Creatinine Ratio 14.54; Blood Urea Nitrogen 16 mg/dL (9-20); Calcium 9.8 mg/dL (8.4-10.2); Carbon Dioxide 23 mmol/L (22-30); Chloride 98.9 mmol/L (98-107); Glucose 115 mg/dL (75-100); Potassium 4.5 mmol/L (3.6-5.0); Sodium 142 mmol/L (137-145); Total Protein 7.5 g/dL (6.3-8.2)
[2017-01-30] MEDS ORDERED: MIDAZOLAM 100 MG in NACL 0.9% 80 ML IV SCH (23:00)
[2017-01-30] MEDS ORDERED: BENADRYL IV ONE (23:00)
[2017-01-30] MEDS ORDERED: SUBLIMAZE IV ONE (23:00)
--- NOTE | 2017-01-30 23:11 | Emergency Department Report ---
ED Palpitations HPI - General Chief Complaint: Altered Mental Status Stated Complaint: NARCOTICS Time Seen by Provider: 01/30/17 21:38 Source: patient, EMS Mode of arrival: Stretcher Limitations: Altered Mental Status - History of Present Illness Initial Comments: Patient is a 26-year-old male with history of schizophrenia and drug abuse presenting to the ER with complaints of methamphetamine overdose. Patient presented with the EMS who reports he snorted a large amount of meth today and then came up to the EMS truck requesting detox. Upon initial evaluation by EMS, patient was AAOx3, normotensive, and tachycardic into the 180's. Pt was started on fluids prior to arrival. Currently patient reports anxiety, but otherwise no fevers, chills, GUZMAN, dizziness, NVD, CP, SOB, abd pain, trauma, falls, or sick contacts. Pt reports he also has SI and has a plan to run into traffic. Pt was recently seen a few days prior for SI and was sent to a psych facility. Pt reports he is supposed to be on a number of different psychiatric drugs, but cannot recall all meds and dosages. - Related Data Home Medications Medication Instructions Recorded Confirmed Last Taken Citalopram [celeXA] 20 mg PO QDAY 07/22/16 01/24/17 Unknown traZODone [Desyrel] 150 mg PO QHS 07/22/16 01/24/17 Unknown QUEtiapine [SEROquel] 200 mg PO QDAY 01/24/17 01/24/17 Unknown Allergies Allergy/AdvReac Type Severity Reaction Status Date / Time No Known Allergies Allergy Verified 01/13/17 08:57 ED Review of Systems ROS: Stated complaint: NARCOTICS Other details as noted in HPI Comment: All other systems reviewed and negative ED Past Medical Hx - Past Medical History Hx Hypertension: No Hx Heart Attack/AMI: No Hx Congestive Heart Failure: No Hx Diabetes: No Hx Deep Vein Thrombosis: No Hx Pulmonary Embolism: No Hx Liver Disease: No Hx Renal Disease: No Hx Arthritis: No Hx Seizures: No Hx Kidney Stones: No Hx Psychiatric Treatment: Yes (BIPOLAR/SCHIZO/PANIC ATTACKS/ANXIETY/DEPRESSION) Hx Asthma: No Hx COPD: No Hx Tuberculosis: No Hx Dementia: No Hx HIV: No - Surgical History Hx Coronary Stent: No Hx Pacemaker: No Hx Internal Defibrillator: No - Social History Smoking Status: Current Every Day Smoker Substance Use Type: Alcohol, Methamphetamines - Medications Home Medications: Home Medications Medication Instructions Recorded Confirmed Last Taken Type Citalopram [celeXA] 20 mg PO QDAY 07/22/16 01/24/17 Unknown History traZODone [Desyrel] 150 mg PO QHS 07/22/16 01/24/17 Unknown History QUEtiapine [SEROquel] 200 mg PO QDAY 01/24/17 01/24/17 Unknown History ED Physical Exam - General Limitations: No Limitations General appearance: alert, in no apparent distress, anxious - Head Head exam: Present: atraumatic, normocephalic - Eye Eye exam: Present: normal appearance, PERRL, EOMI. Absent: scleral icterus, conjunctival injection, nystagmus Pupils: Present: normal accommodation - ENT ENT exam: Present: normal exam, mucous membranes moist - Neck Neck exam: Present: normal inspection - Respiratory Respiratory exam: Present: normal lung sounds bilaterally. Absent: respiratory distress - Cardiovascular Cardiovascular Exam: Present: regular rate, normal rhythm. Absent: systolic murmur, diastolic murmur, rubs, gallop - GI/Abdominal GI/Abdominal exam: Present: soft, normal bowel sounds - Rectal Rectal exam: Present: deferred - Extremities Exam Extremities exam: Present: normal inspection, full ROM, normal capillary refill. Absent: tenderness, pedal edema, joint swelling - Back Exam Back exam: Present: normal inspection - Neurological Exam Neurological exam: Present: alert, oriented X3, CN II-XII intact, other ( patient appears anxious and tremulous) - Psychiatric Psychiatric exam: Present: normal affect, normal mood, suicidal ideation - Skin Skin exam: Present: warm, dry, intact, normal color. Absent: rash ED Course Vital Signs 01/30/17 01/30/17 01/30/17 18:02 18:10 21:12 Temperature Pulse Rate 92 H 91 H 167 H Respiratory 27 H 28 H 16 Rate Blood Pressure Blood Pressure [Right] O2 Sat by Pulse 93 91 100 Oximetry 01/30/17 01/30/17 01/30/17 21:20 21:30 21:40 Temperature Pulse Rate 165 H 176 H 170 H Respiratory 13 24 19 Rate Blood Pressure 137/86 144/60 149/76 Blood Pressure [Right] O2 Sat by Pulse 100 100 100 Oximetry 01/30/17 01/30/17 01/30/17 21:50 22:00 22:01 Temperature 98.3 F Pulse Rate 178 H 184 H 174 H Respiratory 16 18 19 Rate Blood Pressure 147/71 154/69 154/69 Blood Pressure 154/69 [Right] O2 Sat by Pulse 100 100 100 Oximetry 01/30/17 01/30/17 01/30/17 22:10 22:20 22:30 Temperature Pulse Rate 171 H 160 H 162 H Respiratory 18 26 H 29 H Rate Blood Pressure 131/58 154/69 121/48 Blood Pressure [Right] O2 Sat by Pulse 100 99 96 Oximetry 01/30/17 01/30/17 01/30/17 22:40 22:50 23:00 Temperature Pulse Rate 164 H 162 H 175 H Respiratory 23 28 H 16 Rate Blood Pressure 121/48 133/47 117/50 Blood Pressure [Right] O2 Sat by Pulse 99 100 100 Oximetry 01/30/17 01/30/17 01/30/17 23:10 23:20 23:30 Temperature Pulse Rate 165 H 160 H 158 H Respiratory 16 15 15 Rate Blood Pressure 117/50 143/59 143/59 Blood Pressure [Right] O2 Sat by Pulse 99 100 99 Oximetry 01/30/17 23:40 Temperature Pulse Rate 153 H Respiratory 17 Rate Blood Pressure 115/63 Blood Pressure [Right] O2 Sat by Pulse 100 Oximetry - Reevaluation(s) Reevaluation #1: 01/31/17 01:49 Pt has improved. Tachycardia has improved to the 130's, remains in sinus tachycardia, vesred infusion is being titrated for effect. ED Medical Decision Making - Lab Data Result diagrams: 01/30/17 21:45 01/30/17 21:45 - EKG Data -: EKG Interpreted by Me - EKG Data 01/30/17 21:19 Sinus tachycardia at 171 bpm, QTC is 479 ms, normal axis, no LVH, no ST changes , no STEMI - Radiology Data Radiology results: image reviewed CXR: No acute cardiopulmonary issues as visualized by me - Medical Decision Making Pt cared for as stated in CC note section Critical Care Time: Yes (Meth overdose, severe tachycardia) Critical care time in (mins) excluding proc time.: 45 Critical care attestation.: If time is entered above; I have spent that time in minutes in the direct care of this critically ill patient, excluding procedure time. Pt was seen immediately upon arrival, IV, O2, Monitor placed on patient Initial HR found to be in the 190's, Sinus tachycardia. Pt admited to using large amount of Meth today. Pt in total was given Valium 60mg, Phenobarbital 130mg, Fentanyl 50mcg, and then was started on a versed infusion at 4mg/hr Pt's HR improved from 190 to 160 and his SBP remained in the [id number] range. Pt remained calm and cooperative throughout the entire episode. Pt also reports SI with plan to run into traffic, patient made [address] Goldberg was consulted who agreed with valium therapy and then versed infusion therapy ED Disposition Clinical Impression: Drug overdose, Tachycardia, Suicidal thoughts Disposition: OP ADMIT IP TO THIS HOSP Is pt being admited?: Yes Condition: Serious
[2017-01-30] MEDS ORDERED: CARDIZEM IV ONE (23:43)
--- NOTE | 2017-01-30 23:50 | History and Physical Report ---
History of Present Illness Date of examination: 01/30/17 History of present illness: 26-year-old man with a history of methamphetamine abuse, schizophrenia, bipolar comes emergency room because he needed help for detox. Patient states he was just discharged today from [facility], he was detox from methamphetamine and other substances for 5 days. He went to [employer] today to obtain a job, his urine was positive for illegal substances and he felt very frustrated and hopeless. Patient states he did a couple lines of meth today because he felt hopeless. Admits to suicide ideation. He is tachycardic in the 180s, he was given a total of 60 mg of IV Valium, there is no more Valium in the hospital. The patient was started on a Versed drip Patient denies chest pain, palpitation, shortness of breath, cough, abdominal pain, hematochezia, dysuria, frequency, focal weakness, dysarthria, fever chills , polydipsia polyuria, hot or cold intolerance, easy bruisability, or rash or bleeding from mucosal membrane, rhinorrhea, epistaxis, earache, tinnitus, blurry vision, eye discharge, anxiety, depression. Other review of systems negative PAST SURGICAL HISTORY: None SOCIAL HISTORY:Admits to methamphetamine abuse, benzodiazepine, tobacco abuse, social alcohol FAMILY HISTORY: Schizophrenia Medications and Allergies Allergies Allergy/AdvReac Type Severity Reaction Status Date / Time No Known Allergies Allergy Verified 01/13/17 08:57 Home Medications Medication Instructions Recorded Confirmed Last Taken Type Citalopram [celeXA] 20 mg PO QDAY 07/22/16 01/24/17 Unknown History traZODone [Desyrel] 150 mg PO QHS 07/22/16 01/24/17 Unknown History QUEtiapine [SEROquel] 200 mg PO QDAY 01/24/17 01/24/17 Unknown History Active Meds: Active Medications Diltiazem HCl (Cardizem) 10 mg IV ONCE ONE Stop: 01/30/17 23:44 Midazolam HCl 100 mg/ Sodium (Chloride) 100 mls @ 4 mls/hr IV TITR PAT; 4 MG/HR PRN Reason: Protocol Last Admin: 01/30/17 23:31 Dose: 4 mg/hr, 4 mls/hr Sodium Chloride (Nacl 0.9% 1000 Ml) 1,000 mls @ 999 mls/hr IV BOLUS ONE Stop: 01/31/17 00:06 Last Admin: 01/30/17 23:31 Dose: 999 mls/hr Exam - Physical Exam Narrative exam: Gen. appearance: Patient lying in bed, no apparent distress HEENT: Normocephalic, atraumatic, pupils equally round and reactive to light, extraocular movement intact, and no sclericterus,. No JVD or thyromegaly or nodule,neck supple, no carotid bruit ,mucous membranes moist, no exudate or erythema Heart: S1, S2, regular rate and rhythm Lungs: Clear to auscultation bilaterally, breathing comfortable Abdomen: Positive bowel sounds, nontender, nondistended, no organomegaly Extremity: No edema, cyanosis, clubbing Skin: No rash, nodules, warm, dry Neuro: Oriented 3, cranial nerves II-12 intact, speech is fluent, motor and sensory intact - Constitutional Vitals: Temp Pulse Resp BP Pulse Ox 98.3 F 158 H 15 143/59 99 01/30/17 22:01 01/30/17 23:30 01/30/17 23:30 01/30/17 23:30 01/30/17 23:30 Results - Labs CBC & Chem 7: 01/30/17 21:45 01/30/17 21:45 Labs: Abnormal lab results 01/30/17 01/30/17 01/30/17 Range/Units 21:45 21:45 21:45 RBC 5.12 H (3.65-5.03) M/mm3 Hct 45.9 H (35.5-45.6) % Lymph % (Auto) 10.1 L (13.4-35.0) % Lymph # 1.1 L (1.2-5.4) K/mm3 Seg Neutrophils % 84.6 H (40.0-70.0) % Seg Neutrophils # 9.2 H (1.8-7.7) K/mm3 APTT 24.1 L (24.2-36.6) Sec. Glucose 115 H (75-100) mg/dL Lactic Acid (0.7-2.0) mmol/L Magnesium (1.7-2.3) mg/dL AST 84 H (5-40) units/L ALT 171 H (7-56) units/L 01/30/17 01/30/17 Range/Units 21:45 21:45 RBC (3.65-5.03) M/mm3 Hct (35.5-45.6) % Lymph % (Auto) (13.4-35.0) % Lymph # (1.2-5.4) K/mm3 Seg Neutrophils % (40.0-70.0) % Seg Neutrophils # (1.8-7.7) K/mm3 APTT (24.2-36.6) Sec. Glucose (75-100) mg/dL Lactic Acid 5.40 H* (0.7-2.0) mmol/L Magnesium 1.60 L (1.7-2.3) mg/dL AST (5-40) units/L ALT (7-56) units/L - Imaging and Cardiology EKG: image reviewed Chest x-ray: image reviewed Assessment and Plan Methamphetamine overdose Suicide ideation Substance abuse Admits medicine Start IV fluids,, continue Versed drip Give a dose of IV Cardizem Consult psych Place on 1013, start DVT prophylaxis
[2017-01-31] MEDS ORDERED: NACL 0.9% 1000 ML 1,000 ML ONE (00:36)
[2017-01-31] MEDS ORDERED: NACL 0.9% 1000 ML 1,000 ML IV ONE (00:36)
[2017-01-31 00:45] LABS: Urine Drugs of Abuse Note Disclamer
[2017-01-31] MEDS ORDERED: NACL 0.9% 1000 ML 1,000 ML IV SCH (02:00)
--- NOTE | 2017-01-31 03:34 | Admit Criteria Form ---
Admission Criteria Documentation: DRUG INGESTION OR OVERDOSE Clinical Indications for Admission to Inpatient Care ( Place 'X' for any and all applicable criteria): Admission is indicated for severe toxicity as indicated by ANY ONE of the following(1)(2)(3)(4)(5)(6): [X ]I. Inpatient admission required rather than observation care (Also use Drug Ingestion or Overdose: Observation Care guideline as appropriate) because of ANY ONE of the following: [ ]a) Altered mental status that is severe or persistent [ ]b) Clinical finding (eg, metabolic acidosis, hypoglycemia, bradycardia) that is severe or persistent [ ]c) Toxic drug level that is persistent [ X]d) Psychiatric risk status not acceptable for outpatient management [ ]e) Continuous intravenous infusion of anticoagulation, platelet inhibitor, vasoactive, or antiarrhythmic medication (15)(16) [ ]f) Other condition, treatment or monitoring requiring inpatient admission [ ]II. Respiratory abnormalities [ ]III. Specific finding indicating severe and likely prolonged drug toxicity [ ]IV. Hemodynamic instability [ ]V. Dangerous arrhythmia [ ]. Hypertension requiring inpatient treatment Extended stay beyond goal length of stay may be needed for (4): [ ]a) Neurologic or respiratory compromise [ ]b) Hemodynamic instability [ ]c) Persistent toxic drug levels (25) [ ]d) Severe drug toxicities or complications [ ]e) Ongoing antidote treatment (eg, acetaminophen overdose)(5) [ ]f) Older patients(65 years or older) The original [facility] content created by [employer] has been revised. The portions of the content which have been revised are identified through the use of italic text or in bold, and [facility] has neither reviewed nor approved the modified material. All other unmodified content is copyright [facility] [employer]. Please see references footnoted in the original [facility] [employer] edition 2016 Admission Criteria Met: Yes
[2017-01-31] MEDS ORDERED: HALDOL IM ONE (04:36)
--- NOTE | 2017-01-31 09:37 | XRay Report ---
AP CHEST: History: Chest pain/tachycardia. AP view of the chest demonstrates a normal mediastinal and cardiac contour with clear lungs and normal bony and soft tissue structures. IMPRESSION: Normal AP chest.
--- NOTE | 2017-01-31 13:13 | Progress Note ---
Assessment and Plan Assessment and plan: Patient is 26-year-old man with a history of schizophrenia, bipolar and substance abuse who presents with snorting methamphetamine and Melissa. Patient was placed under 1013 because he expressed killing himself by running into traffic. Today, patient denies SI and states he was just high. -Acute toxic metabolic encephalopathy due to drug abuse -SI: await psych eval -Hypomagnesemia: replace and recheck in am -Drug Overdose: UDS positive for meth, bzd and thc -DVT prophylaxis: scd and sq lovenox History Interval history: Patient seen and examined. Follow up on Altered mental status. Overnight uneventful. No cp, sob, n/v or severe headaches. Imaging, old records, testing, labs, nursing notes reviewed. He denies any suicidal ideation Hospitalist Physical - Physical exam Narrative exam: GEN: WDWN, NAD, AWAKE, ALERT, ORIENTATED x 3 HEENT: NCAT, PERRL, EOMI, OP CLEAR NECK: SUPPLE, NO THYROMEGALY, NO JVD, NO LAD CVS: RRR, NORMAL S1S2 LUNGS/CHEST: CTA B, NORMAL CHEST EXPANSION B, GOOD AIR ENTRY B ABD: SOFT, NTND, GBS, NO REBOUND OR GUARDING EXT/SKIN: NO SIGNIFICANT EDEMA OR RASH MSK: FROM X 4 EXTREMITIES NEURO: CN 2-12 GROSSLY INTACT, NO FOCAL DEFICITS PSY: CALM - Constitutional Vitals: Temp Pulse Resp BP Pulse Ox 98.3 F 95 H 16 124/74 99 01/30/17 22:01 01/31/17 05:07 01/31/17 10:48 01/31/17 05:07 01/31/17 10:48 Results - Labs CBC & Chem 7: 01/30/17 21:45 01/30/17 21:45 Labs: Laboratory Last Values WBC 10.8 K/mm3 (4.5-11.0) 01/30/17 21:45 RBC 5.12 M/mm3 (3.65-5.03) H 01/30/17 21:45 Hgb 15.2 gm/dl (11.8-15.2) 01/30/17 21:45 Hct 45.9 % (35.5-45.6) H 01/30/17 21:45 MCV 90 fl (84-94) 01/30/17 21:45 MCH 30 pg (28-32) 01/30/17 21:45 MCHC 33 % (32-34) 01/30/17 21:45 RDW 13.5 % (13.2-15.2) 01/30/17 21:45 Plt Count 184 K/mm3 (140-440) 01/30/17 21:45 Lymph % (Auto) 10.1 % (13.4-35.0) L 01/30/17 21:45 [place] % (Auto) 4.8 % (0.0-7.3) 01/30/17 21:45 Eos % (Auto) 0.1 % (0.0-4.3) 01/30/17 21:45 Baso % (Auto) 0.4 % (0.0-1.8) 01/30/17 21:45 Lymph # 1.1 K/mm3 (1.2-5.4) L 01/30/17 21:45 [place] # 0.5 K/mm3 (0.0-0.8) 01/30/17 21:45 Eos # 0.0 K/mm3 (0.0-0.4) 01/30/17 21:45 Baso # 0.0 K/mm3 (0.0-0.1) 01/30/17 21:45 Seg Neutrophils % 84.6 % (40.0-70.0) H 01/30/17 21:45 Seg Neutrophils # 9.2 K/mm3 (1.8-7.7) H 01/30/17 21:45 PT 14.2 Sec. (12.2-14.9) 01/30/17 21:45 INR 1.11 (0.87-1.13) 01/30/17 21:45 APTT 24.1 Sec. (24.2-36.6) L 01/30/17 21:45 D-Dimer 145.19 ng/mlDDU (0-234) 01/30/17 21:45 Sodium 142 mmol/L (137-145) 01/30/17 21:45 Potassium 4.5 mmol/L (3.6-5.0) 01/30/17 21:45 Chloride 98.9 mmol/L (98-107) 01/30/17 21:45 Carbon Dioxide 23 mmol/L (22-30) 01/30/17 21:45 Anion Gap 25 mmol/L 01/30/17 21:45 BUN 16 mg/dL (9-20) 01/30/17 21:45 Creatinine 1.1 mg/dL (0.8-1.5) 01/30/17 21:45 Estimated GFR > 60 ml/min 01/30/17 21:45 BUN/Creatinine Ratio 14.54 % 01/30/17 21:45 Glucose 115 mg/dL (75-100) H 01/30/17 21:45 Lactic Acid 5.40 mmol/L (0.7-2.0) H* 01/30/17 21:45 Calcium 9.8 mg/dL (8.4-10.2) 01/30/17 21:45 Magnesium 1.60 mg/dL (1.7-2.3) L 01/30/17 21:45 Total Bilirubin 0.30 mg/dL (0.1-1.2) 01/30/17 21:45 AST 84 units/L (5-40) H 01/30/17 21:45 ALT 171 units/L (7-56) H 01/30/17 21:45 Alkaline Phosphatase 80 units/L (35-129) 01/30/17 21:45 Total Creatine Kinase 105 units/L (55-170) 01/30/17 22:00 Troponin T < 0.010 ng/mL (0.00-0.029) 01/30/17 21:45 Total Protein 7.5 g/dL (6.3-8.2) 01/30/17 21:45 Albumin 4.5 g/dL (3.9-5) 01/30/17 21:45 Albumin/Globulin Ratio 1.5 % 01/30/17 21:45 TSH 3.920 mlU/mL (0.270-4.200) 01/30/17 21:45 Urine Opiates Screen Presumptive negative 01/31/17 00:17 Urine Methadone Screen Presumptive negative 01/31/17 00:17 Ur Barbiturates Screen Presumptive positive 01/31/17 00:17 Ur Phencyclidine Scrn Presumptive negative 01/31/17 00:17 Ur Amphetamines Screen Presumptive positive 01/31/17 00:17 U Benzodiazepines Scrn Presumptive positive 01/31/17 00:17 Urine Cocaine Screen Presumptive negative 01/31/17 00:17 U Marijuana (THC) Screen Presumptive positive 01/31/17 00:17 Drugs of Abuse Note Disclamer 01/31/17 00:17
[2017-01-31] MEDS ORDERED: AMBIEN PO PRN (13:15)
[2017-01-31] MEDS ORDERED: NORMODYNE IV PRN (13:15)
[2017-01-31] MEDS ORDERED: MORPHINE IV PRN (13:15)
[2017-01-31] MEDS ORDERED: TYLENOL PO PRN (13:15)
[2017-01-31] MEDS ORDERED: NORCO 5/325 PO PRN (13:15)
[2017-01-31] MEDS ORDERED: ZOFRAN IV PRN (13:15)
[2017-01-31] MEDS ORDERED: MAGNESIUM SULFATE 2GM/50ML 2 GM/50 ML BAG IV ONE (14:00)
--- NOTE | 2017-01-31 18:03 | Consultation ---
History of Present Illness - Reason for Consult Consult date: 01/31/17 Reason for consult: psychiatric evaluation - Chief Complaint Chief complaint: "I came in for chest pain" Patient is 26-year-old man with a history of schizophrenia, bipolar and substance abuse who presents with snorting methamphetamine and Melissa. Patient was placed under 1013 because he expressed killing himself by running into traffic. The patient denies suicidal ideation. He reports using methamphetamine daily. He was seen in the ER less than one week ago for mental health and substance abuse concerns. He was sent to [facility] and began using substances as soon as he left. He provided minimal information on today's interview but denies his mental health condition to be severe like it was one week ago. For additional information On 01/24/2017, the patient was seen by this author for another initial evaluation and the following was recorded: 26-year-old male with history of schizophrenia and drug abuse presenting because of auditory hallucinations, depression and suicidal ideation. Per the record the patient stated that he has a long history of schizophrenia and was last hospitalized in a mental health institution approximately 3 months ago. He was unable to recall hospitalizations during the psychiatric evaluation. Patient is guarded on exam and minimally answered questions. He reports being depressed and lost the motivation to continue seeing the doctor about his psychiatric medications. His most recent psychiatric medications are trazodone 150mg, Seroquel 200mg and Celexa 20mg daily. Once off of them he resorted to using xanax, smoking methamphetamine, marijuana, and oral opioid medications including Percocet and [place], and drinking G (which he reports is made with floor stripper). Last use was yesterday. He wants to be off drugs. He reports auditory hallucinations but does not remember being found in the road. He denies drinking alcohol. Medications and Allergies Allergies Allergy/AdvReac Type Severity Reaction Status Date / Time No Known Allergies Allergy Verified 01/13/17 08:57 Home Medications Medication Instructions Recorded Confirmed Last Taken Type Citalopram [celeXA] 20 mg PO QDAY 07/22/16 01/24/17 Unknown History traZODone [Desyrel] 150 mg PO QHS 07/22/16 01/24/17 Unknown History QUEtiapine [SEROquel] 200 mg PO QDAY 01/24/17 01/24/17 Unknown History Active Meds: Active Medications Acetaminophen (Tylenol) 325 mg PO Q6H PRN PRN Reason: Pain, Mild (1-3) Acetaminophen/Hydrocodone Bitart ([place] 5/325) 1 each PO Q4H PRN PRN Reason: Pain, Moderate (4-6) Enoxaparin Sodium (Lovenox) 40 mg SUB-Q QDAY@2200 PAT Sodium Chloride (Nacl 0.9% 1000 Ml) 1,000 mls @ 150 mls/hr IV DIRECT PAT Labetalol HCl (Normodyne) 10 mg IV ONCE PRN PRN Reason: Blood Pressure Morphine Sulfate (Morphine) 2 mg IV Q4H PRN PRN Reason: Pain , Severe (7-10) Ondansetron HCl (Zofran) 4 mg IV Q4H PRN PRN Reason: Nausea And Vomiting Pantoprazole Sodium (Protonix) 40 mg PO QDAY PAT Zolpidem Tartrate (Ambien) 5 mg PO QHS PRN PRN Reason: Sleep Past psychiatric history - Past Medical History Past Medical History: No medical history Past Surgical History: No surgical history - past Psychiatric treatment and history Psych: Schizophrenia - Social History Social history: other (works in [employer]. lives with others who use drugs) Mental Status Exam - Vital signs Last Vital Signs Temp 98.3 F 01/30/17 22:01 Pulse 76 01/31/17 14:58 Resp 16 01/31/17 10:48 BP 120/77 01/31/17 14:58 Pulse Ox 99 01/31/17 10:48 - Exam Orientation: time, place, person Affect: normal Mood: calm Thought content: other (denies SI, denies HI) Thought Process: Intact Perceptions: none Speech: normal rate and pattern Concentration: focused Motor activity: normal Level of consciousness: alert Memory: Intact Sleep Symptoms: None Appetite: decreased Interaction: cooperative Results Result Diagrams: 01/30/17 21:45 01/30/17 21:45 All other labs normal. Assessment and Plan Assessment and plan: Impression: Per the record, he voiced SI with a plan He has since denied SI and does not present with psychosis. No HI. Schizophrenia by history Amphetamine use disorder (methamphetamine), cannabis use disorder, opioid use, and recent ingestion of Gamma butyrolactone (industrial solvent) Recommendation: Reevaluate in 24 hours to determine if he meets criteria for 1013. If he maintains denial of SI and no psychosis is present, it will likely be rescinded. He clearly needs substance abuse treatment, but this can be accomplished on a voluntary basis Consider restarting his medications with changes: Drug/drug interaction of Seroquel and Celexa have risk of arrythmia related to prolonged QT Plan to discuss past medication trials with patient if more amenable to interview in 24 hours.
[2017-01-31] MEDS ORDERED: LOVENOX SUB-Q SCH (22:00)
[2017-02-01] MEDS ORDERED: PROTONIX PO SCH (10:00)
[2017-02-01 10:03] LABS: Hematocrit 43.7 % (35.5-45.6); Hemoglobin 14.4 gm/dl (11.8-15.2); Mean Corpuscular HGB Conc 33 % (32-34); Mean Corpuscular Hemoglobin 30 pg (28-32); Mean Corpuscular Volume 90 fl (84-94); Platelet Count 121 K/mm3 (140-440); Red Blood Count 4.86 M/mm3 (3.65-5.03); Red Cell Distribution Width 13.6 % (13.2-15.2); White Blood Count 3.9 K/mm3 (4.5-11.0)
[2017-02-01 10:22] LABS: Anion Gap 16 mmol/L; Blood Urea Nitrogen 12 mg/dL (9-20); Carbon Dioxide 28 mmol/L (22-30); Chloride 99.2 mmol/L (98-107); Glucose 87 mg/dL (75-100); Potassium 4.1 mmol/L (3.6-5.0); Sodium 139 mmol/L (137-145)
--- NOTE | 2017-02-01 11:10 | Progress Note ---
Subjective - Reason for Consult Consult date: 02/01/17 Reason for consult: Psychiatry Follow-up - Chief Complaint Chief complaint: "I feel better" Patient is 26-year-old man with a history of schizophrenia, bipolar and substance abuse who presents with snorting methamphetamine and Melissa. Patient was placed under 1013 because he expressed killing himself by running into traffic. Today patient is calm and cooperative. This patient is known to me. He stated that he left [facility] went on a "meth binge" for several days. He stated following his meth binge he felt chest pain. He could not tell me what happened next. He did state that EMS brought him to [facility]. He denies SI/ HI's, AVH's, and depression symptoms. The patient kept saying that he want help for his drug addiction. Mental Status Exam - Vital signs Last Vital Signs Temp 98 F 01/31/17 20:00 Pulse 86 01/31/17 20:00 Resp 18 01/31/17 20:00 BP 115/66 01/31/17 20:00 Pulse Ox 99 01/31/17 20:00 - Exam Narrative exam: MSE: Appearance: calm, cooperative Behavior: good eye contact Speech: regular rate and tone Mood: "okay" Affect: congruent to mood Thought Process: linear Thought Content: denies SI/HI's and VH's Motor Activity: lying in the bed Cognition: a/ox 3 Insight: fair Judgment: limited Assessment and Plan Impression: Today patient is calm and cooperative. I have treated this patient in the past. He stated that he left [facility] went on a "meth binge" for several days. He stated following his meth binge he felt chest pain. He could not tell me what happened next. He did state that EMS brought him to [facility]. He denies SI/HI's and AVH's. Positive for marijuana, amphetamines, benzos , and barbiturates. No acute withdrawals noted. Patient is no threat to self. No acute psychosis noted. Recommendation/Plan: Rescind 1013. Psychiatry sign off this patient. Patient given outpatient psy services for his local area ([facility]). Reconsult if indicated.
--- NOTE | 2017-02-01 12:34 | Progress Note ---
Assessment and Plan Assessment and plan: Patient is 26-year-old man with a history of schizophrenia, bipolar and substance abuse who presents with snorting methamphetamine and Melissa. Patient was placed under 1013 because he expressed killing himself by running into traffic. Today, patient denies SI and states he was just high. -Acute toxic metabolic encephalopathy due to drug abuse -SI: await psych eval -Hypomagnesemia: replace and recheck in am -Drug Overdose: UDS positive for meth, bzd and thc -DVT prophylaxis: scd and sq lovenox History Interval history: Patient seen and examined. Follow up on Altered mental status. Overnight uneventful. No cp, sob, n/v or severe headaches. Imaging, old records, testing, labs, nursing notes reviewed. He denies any suicidal ideation Hospitalist Physical - Physical exam Narrative exam: GEN: WDWN, NAD, AWAKE, ALERT, ORIENTATED x 3 HEENT: NCAT, PERRL, EOMI, OP CLEAR NECK: SUPPLE, NO THYROMEGALY, NO JVD, NO LAD CVS: RRR, NORMAL S1S2 LUNGS/CHEST: CTA B, NORMAL CHEST EXPANSION B, GOOD AIR ENTRY B ABD: SOFT, NTND, GBS, NO REBOUND OR GUARDING EXT/SKIN: NO SIGNIFICANT EDEMA OR RASH MSK: FROM X 4 EXTREMITIES NEURO: CN 2-12 GROSSLY INTACT, NO FOCAL DEFICITS PSY: CALM - Constitutional Vitals: Temp Pulse Resp BP Pulse Ox 98 F 86 18 115/66 99 01/31/17 20:00 01/31/17 20:00 02/01/17 11:00 01/31/17 20:00 02/01/17 11:00 Results - Labs CBC & Chem 7: 02/01/17 09:12 02/01/17 09:12 Labs: Laboratory Last Values WBC 3.9 K/mm3 (4.5-11.0) L 02/01/17 09:12 RBC 4.86 M/mm3 (3.65-5.03) 02/01/17 09:12 Hgb 14.4 gm/dl (11.8-15.2) 02/01/17 09:12 Hct 43.7 % (35.5-45.6) 02/01/17 09:12 MCV 90 fl (84-94) 02/01/17 09:12 MCH 30 pg (28-32) 02/01/17 09:12 MCHC 33 % (32-34) 02/01/17 09:12 RDW 13.6 % (13.2-15.2) 02/01/17 09:12 Plt Count 121 K/mm3 (140-440) L 02/01/17 09:12 Lymph % (Auto) 10.1 % (13.4-35.0) L 01/30/17 21:45 Mayes % (Auto) 4.8 % (0.0-7.3) 01/30/17 21:45 Eos % (Auto) 0.1 % (0.0-4.3) 01/30/17 21:45 Baso % (Auto) 0.4 % (0.0-1.8) 01/30/17 21:45 Lymph # 1.1 K/mm3 (1.2-5.4) L 01/30/17 21:45 Mayes # 0.5 K/mm3 (0.0-0.8) 01/30/17 21:45 Eos # 0.0 K/mm3 (0.0-0.4) 01/30/17 21:45 Baso # 0.0 K/mm3 (0.0-0.1) 01/30/17 21:45 Seg Neutrophils % 84.6 % (40.0-70.0) H 01/30/17 21:45 Seg Neutrophils # 9.2 K/mm3 (1.8-7.7) H 01/30/17 21:45 PT 14.2 Sec. (12.2-14.9) 01/30/17 21:45 INR 1.11 (0.87-1.13) 01/30/17 21:45 APTT 24.1 Sec. (24.2-36.6) L 01/30/17 21:45 D-Dimer 145.19 ng/mlDDU (0-234) 01/30/17 21:45 Sodium 139 mmol/L (137-145) 02/01/17 09:12 Potassium 4.1 mmol/L (3.6-5.0) 02/01/17 09:12 Chloride 99.2 mmol/L (98-107) 02/01/17 09:12 Carbon Dioxide 28 mmol/L (22-30) 02/01/17 09:12 Anion Gap 16 mmol/L 02/01/17 09:12 BUN 12 mg/dL (9-20) 02/01/17 09:12 Creatinine 0.6 mg/dL (0.8-1.5) L 02/01/17 09:12 Estimated GFR > 60 ml/min 02/01/17 09:12 BUN/Creatinine Ratio 20.00 % 02/01/17 09:12 Glucose 87 mg/dL (75-100) 02/01/17 09:12 Lactic Acid 5.40 mmol/L (0.7-2.0) H* 01/30/17 21:45 Calcium 9.0 mg/dL (8.4-10.2) 02/01/17 09:12 Magnesium 2.00 mg/dL (1.7-2.3) 02/01/17 09:12 Total Bilirubin 0.30 mg/dL (0.1-1.2) 01/30/17 21:45 AST 84 units/L (5-40) H 01/30/17 21:45 ALT 171 units/L (7-56) H 01/30/17 21:45 Alkaline Phosphatase 80 units/L (35-129) 01/30/17 21:45 Total Creatine Kinase 105 units/L (55-170) 01/30/17 22:00 Troponin T < 0.010 ng/mL (0.00-0.029) 01/30/17 21:45 Total Protein 7.5 g/dL (6.3-8.2) 01/30/17 21:45 Albumin 4.5 g/dL (3.9-5) 01/30/17 21:45 Albumin/Globulin Ratio 1.5 % 01/30/17 21:45 TSH 3.920 mlU/mL (0.270-4.200) 01/30/17 21:45 Urine Opiates Screen Presumptive negative 01/31/17 00:17 Urine Methadone Screen Presumptive negative 01/31/17 00:17 Ur Barbiturates Screen Presumptive positive 01/31/17 00:17 Ur Phencyclidine Scrn Presumptive negative 01/31/17 00:17 Ur Amphetamines Screen Presumptive positive 01/31/17 00:17 U Benzodiazepines Scrn Presumptive positive 01/31/17 00:17 Urine Cocaine Screen Presumptive negative 01/31/17 00:17 U Marijuana (THC) Screen Presumptive positive 01/31/17 00:17 Drugs of Abuse Note Disclamer 01/31/17 00:17
--- NOTE | 2017-02-01 12:34 | Discharge Summary ---
Providers - Providers Date of Admission: 01/30/17 23:50 Date of discharge: 02/01/17 Attending physician: NUVIA BAILON 01/31/17 01:27 psychiatry consult [Consult to Mental Health] [CONS] Routine Reason For Exam: SI Place consult to:: psych Notified:: yes Was contact made?: Yes If yes, spoke with:: anthony Primary care physician: DIVISION DIRECTOR Hospitalization Condition: Stable Hospital course: Patient is 26-year-old man with a history of schizophrenia, bipolar and substance abuse who presents with snorting methamphetamine and Melissa. Patient was placed under 1013 because he expressed killing himself by running into traffic. Today, patient denies SI and states he was just high. -Acute toxic metabolic encephalopathy due to drug abuse -SI: await psych eval -Hypomagnesemia: replace and recheck in am -Drug Overdose: UDS positive for meth, bzd and thc -DVT prophylaxis: scd and sq lovenox D/c once psych clears Disposition: DC- TO HOME OR SELFCARE Time spent for discharge: 35 minutes Core Measure Documentation - Palliative Care Palliative Care/ Comfort Measures: Not Applicable - Core Measures Any of the following diagnoses?: none - VTE Discharge Requirements Deep Vein Thrombosis/Pulmonary Embolism Present on Admission: No Has pt received <5 days of overlap therapy or INR<2.0: No Anticoagulant overlap therapy prescribed at discharge: No Contraindication No Overlap Therapy order at DC: Not Indicated Exam - Physical Exam Narrative exam: GEN: WDWN, NAD, AWAKE, ALERT, ORIENTATED x 3 HEENT: NCAT, PERRL, EOMI, OP CLEAR NECK: SUPPLE, NO THYROMEGALY, NO JVD, NO LAD CVS: RRR, NORMAL S1S2 LUNGS/CHEST: CTA B, NORMAL CHEST EXPANSION B, GOOD AIR ENTRY B ABD: SOFT, NTND, GBS, NO REBOUND OR GUARDING EXT/SKIN: NO SIGNIFICANT EDEMA OR RASH MSK: FROM X 4 EXTREMITIES NEURO: CN 2-12 GROSSLY INTACT, NO FOCAL DEFICITS PSY: CALM - Constitutional Vitals: Temp Pulse Resp BP Pulse Ox 98 F 86 18 115/66 99 01/31/17 20:00 01/31/17 20:00 02/01/17 11:00 01/31/17 20:00 02/01/17 11:00 Plan Activity: other (no strenous activity ) Diet: regular Follow up with: PRIMARY CARE, [Primary Care Provider] - 7 Days
[2017-02-01 18:18] VITALS: BP 133/79
== END 2017-02-01 19:31 | disposition home or self-care (01) | DRG 917 ==
LOC: ED 21:10 → CC1 23:50 → EEVIPCON 23:50 → 3A 01-31 18:57
PROVIDERS: ADMIT Internal Medicine; ATTEND Internal Medicine
DX: T43.622A Poisoning by amphetamines, intentional self-harm, initial encounter (principal); G92 Toxic encephalopathy; F20.9 Schizophrenia, unspecified; F19.10 Other psychoactive substance abuse, uncomplicated; F31.9 Bipolar disorder, unspecified; F41.9 Anxiety disorder, unspecified; Z72.89 Other problems related to lifestyle; Z81.8 Family history of other mental and behavioral disorders; E83.42 Hypomagnesemia; F41.0 Panic disorder [episodic paroxysmal anxiety]; F15.10 Other stimulant abuse, uncomplicated; F13.10 Sedative, hypnotic or anxiolytic abuse, uncomplicated; Y92.89 Other specified places as the place of occurrence of the external cause; F12.99 Cannabis use, unspecified with unspecified cannabis-induced disorder; F11.99 Opioid use, unspecified with unspecified opioid-induced disorder; T42.4X2A Poisoning by benzodiazepines, intentional self-harm, initial encounter; T48.4X2A Poisoning by expectorants, intentional self-harm, initial encounter
CPT/HCPCS: 36415; 71010; 80048; 80053; 80307; 82140; 82550; 83735; 84443; 84484; 85025; 85027; 85379; 85610; 85730; 93005; 93010; 96361; 96365; 96366; 96372; 96375; 96376; 99291; J0153; J1200; J1630; J1650; J2250; J2560; J3010; J3360; J3475; J7030

== ENCOUNTER 2017-02-10 22:18 | Emergency (ER) | payer OTHER ==
[2017-02-10 23:50] LABS: Basophils % (Auto) 0.7 % (0.0-1.8); Hematocrit 38.7 % (35.5-45.6); Hemoglobin 13.3 gm/dl (11.8-15.2); Mean Corpuscular HGB Conc 35 % (32-34); Mean Corpuscular Hemoglobin 30 pg (28-32); Mean Corpuscular Volume 87 fl (84-94); Platelet Count 165 K/mm3 (140-440); Red Blood Count 4.45 M/mm3 (3.65-5.03); Red Cell Distribution Width 12.8 % (13.2-15.2); White Blood Count 6.5 K/mm3 (4.5-11.0)
[2017-02-11 00:02] LABS: Anion Gap 17 mmol/L; BUN/Creatinine Ratio 6.66; Blood Urea Nitrogen 6 mg/dL (9-20); Calcium 8.9 mg/dL (8.4-10.2); Carbon Dioxide 24 mmol/L (22-30); Glucose 110 mg/dL (75-100); Potassium 3.6 mmol/L (3.6-5.0); Sodium 139 mmol/L (137-145)
--- NOTE | 2017-02-11 00:02 | Emergency Department Report ---
ED Psych HPI - General Chief Complaint: Psych Stated Complaint: EVAL DETOX Time Seen by Provider: 02/10/17 23:51 Source: patient Mode of arrival: Ambulatory - History of Present Illness MD Complaint: suicidal ideation (no plan), feels depressed (drug abuse asking for help; here not long ago) Associated Psychiatric Symptoms: depression, suicidal ideation, racing thoughts , auditory hallucinations, other (paranoid) History of same: Yes Quality: constant Improves With: medication Worsens With: medication Associated Symptoms: confusion. denies: headache, shortness of breath, nausea, vomiting, syncope, insomnia Treatments Prior to Arrival: none If Self Harm: admits thoughts of, other (polysub) Details of Plan: not . no kids. lives w friends - Related Data Previous Rx's Medication Instructions Recorded Last Taken Type Citalopram [Celexa] 20 mg PO QDAY #30 02/01/17 Unknown Rx QUEtiapine [SEROquel] 200 mg PO QDAY #30 02/01/17 Unknown Rx traZODone [Desyrel] 150 mg PO QHS #30 02/01/17 Unknown Rx Allergies Allergy/AdvReac Type Severity Reaction Status Date / Time No Known Allergies Allergy Verified 01/13/17 08:57 ED Review of Systems ROS: Stated complaint: EVAL DETOX Other details as noted in HPI Comment: All other systems reviewed and negative Constitutional: no symptoms reported Eyes: as per HPI ENT: as per HPI Respiratory: no symptoms reported Cardiovascular: as per HPI Endocrine: no symptoms reported Gastrointestinal: as per HPI Genitourinary: as per HPI Musculoskeletal: as per HPI Skin: as per HPI Neurological: as per HPI Psychiatric: as per HPI, anxiety, depression, auditory hallucinations, suicidal thoughts, other (polysub interfering w job and fam. mother and step mother mad at him). denies: visual hallucinations, homicidal thoughts Hematological/Lymphatic: as per HPI ED Past Medical Hx - Past Medical History Previous Medical History?: Yes Hx Hypertension: No Hx Heart Attack/AMI: No Hx Congestive Heart Failure: No Hx Diabetes: No Hx Deep Vein Thrombosis: No Hx Pulmonary Embolism: No Hx Liver Disease: No Hx Renal Disease: No Hx Arthritis: No Hx Seizures: No Hx Kidney Stones: No Hx Psychiatric Treatment: Yes (BIPOLAR/SCHIZO/PANIC ATTACKS/ANXIETY/DEPRESSION) Hx Asthma: No Hx COPD: No Hx Tuberculosis: No Hx Dementia: No Hx HIV: No - Surgical History Hx Coronary Stent: No Hx Pacemaker: No Hx Internal Defibrillator: No - Social History Smoking Status: Current Every Day Smoker Substance Use Type: Alcohol, Methamphetamines - Medications Home Medications: Home Medications Medication Instructions Recorded Confirmed Last Taken Type Citalopram [Celexa] 20 mg PO QDAY #30 02/01/17 01/24/17 Unknown Rx QUEtiapine [SEROquel] 200 mg PO QDAY #30 02/01/17 01/24/17 Unknown Rx traZODone [Desyrel] 150 mg PO QHS #30 02/01/17 01/24/17 Unknown Rx ED Physical Exam - General Limitations: No Limitations, Other General appearance: alert, appears intoxicated, anxious - Head Head exam: Present: atraumatic - Eye Eye exam: Present: PERRL (5 b bilat) - ENT ENT exam: Present: normal exam, mucous membranes moist - Neck Neck exam: Present: normal inspection - Respiratory Respiratory exam: Present: normal lung sounds bilaterally. Absent: respiratory distress, wheezes, rales, rhonchi, stridor - Cardiovascular Cardiovascular Exam: Present: regular rate, normal rhythm. Absent: bradycardia , tachycardia, irregular rhythm - GI/Abdominal GI/Abdominal exam: Present: soft, normal bowel sounds. Absent: distended, tenderness, guarding, rebound, rigid, diminished bowel sounds - Rectal Rectal exam: Present: deferred - External exam: Present: normal external exam. Absent: erythema, swelling - Extremities Exam Extremities exam: Present: normal inspection, full ROM, normal capillary refill. Absent: tenderness, pedal edema, joint swelling, calf tenderness - Back Exam Back exam: Present: normal inspection, full ROM. Absent: tenderness, CVA tenderness (R), CVA tenderness (L), muscle spasm - Neurological Exam Neurological exam: Present: alert, oriented X3, CN II-XII intact, normal gait, motor sensory deficit (dykinetic appearing jaw movements.). Absent: reflexes normal (inc) - Expanded Neurological Exam Expanded Neurological exam: Absent: receptive aphasia, expressive aphasia Patient oriented to: Present: person, place, time Speech: Present: fluid speech. Absent: receptive aphasia, expressive aphasia Cranial nerves: EOM's Intact: Normal, Gag Reflex: Normal, Tongue Deviation: Normal, Nystagmus: Normal, Facial Sensation: Normal Motor strength exam: RUE: 5, LUE: 5, RLE: 5, LLE: 5 Best Eye Response ([place]): (4) open spontaneously Best Motor Response ([place]): (6) obeys commands Best Verbal Response ([place]): (5) oriented [place] Total: 15 - Psychiatric Psychiatric exam: Present: depressed, agitated, anxious, suicidal ideation (no plan). 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 Absent: rash ED Course Vital Signs 02/10/17 22:37 Temperature 99.5 F Pulse Rate 82 Respiratory 18 Rate Blood Pressure 143/91 O2 Sat by Pulse 100 Oximetry - Reevaluation(s) Reevaluation #1: 02/11/17 00:57 became agitated haldol 5 mg im given 1013 labs p mhe and dispo for si wo plan and polysub admits to meth and alcohol. plan labs mhe ED Medical Decision Making - Lab Data Result diagrams: 02/10/17 23:28 02/10/17 23:28 - Medical Decision Making polysub w si no plan a/c use Critical care attestation.: If time is entered above; I have spent that time in minutes in the direct care of this critically ill patient, excluding procedure time. ED Disposition Clinical Impression: Polysubstance (excluding opioids) dependence, Alcohol abuse, Suicidal thoughts , Schizo-affective psychosis Disposition: [id number]/TX-[id number] PSY HOSP/PSY UNIT Is pt being admited?: No Does the pt Need Aspirin: No Condition: Stable
[2017-02-11] MEDS ORDERED: HALDOL IM ONE (00:07)
[2017-02-11] MEDS ORDERED: HALDOL ONE (00:07)
[2017-02-11 00:17] LABS: Alanine Aminotransferase 61 units/L (7-56); Albumin 4.2 g/dL (3.9-5); Albumin/Globulin Ratio 1.4 %; Alkaline Phosphatase 73 units/L (35-129); Total Protein 7.2 g/dL (6.3-8.2)
[2017-02-11 00:25] LABS: Bilirubin,Direct < 0.2 mg/dL (0-0.2); Bilirubin,Indirect 0.3 mg/dL
[2017-02-11 01:17] LABS: Urine Drugs of Abuse Note Disclamer
[2017-02-11 01:31] LABS: Bilirubin,Urine NEG (Negative); Blood,Urine SM (Negative); Ketones,Urine NEG (Negative); Leukocyte Esterase,Urine TR (Negative); Mucus,Urine FEW /HPF; Nitrite,Urine NEG (Negative); Protein,Urine <15 mg/dL mg/dL (Negative)
--- NOTE | 2017-02-11 11:54 | Consultation ---
History of Present Illness - Reason for Consult Consult date: 02/11/17 Reason for consult: acute intoxication Medications and Allergies Allergies Allergy/AdvReac Type Severity Reaction Status Date / Time No Known Allergies Allergy Verified 01/13/17 08:57 Home Medications Medication Instructions Recorded Confirmed Last Taken Type Citalopram [Celexa] 20 mg PO QDAY #30 02/01/17 02/11/17 Unknown Rx QUEtiapine [SEROquel] 200 mg PO QDAY #30 02/01/17 02/11/17 Unknown Rx traZODone [Desyrel] 150 mg PO QHS #30 02/01/17 02/11/17 Unknown Rx Active Meds: Active Medications Quetiapine Fumarate (Seroquel) 200 mg PO DAILY PAT Stop: 02/15/17 09:59 Trazodone HCl (Desyrel) 150 mg PO HS PAT Stop: 02/15/17 21:59 Mental Status Exam - Vital signs Last Vital Signs Temp 97.7 F 02/11/17 09:09 Pulse 57 L 02/11/17 09:09 Resp 16 02/11/17 09:11 BP 116/63 02/11/17 09:09 Pulse Ox 100 02/11/17 09:11 Results Result Diagrams: 02/10/17 23:28 02/10/17 23:28 Abnormal lab results 02/10/17 02/10/17 02/10/17 Range/Units 23:28 23:28 23:28 MCHC 35 H (32-34) % RDW 12.8 L (13.2-15.2) % BUN 6 L (9-20) mg/dL Glucose 110 H (75-100) mg/dL AST 42 H (5-40) units/L ALT 61 H (7-56) units/L Salicylates (2.8-20.0) mg/dL 02/10/17 Range/Units 23:59 MCHC (32-34) % RDW (13.2-15.2) % BUN (9-20) mg/dL Glucose (75-100) mg/dL AST (5-40) units/L ALT (7-56) units/L Salicylates < 0.3 L (2.8-20.0) mg/dL All other labs normal. Assessment and Plan Assessment and plan: CHIEF COMPLAINT IN PATIENTS WORDS: HISTORY OF PRESENT ILLNESS REQUIRING ADMISSION TO INPATIENT LEVEL OF CARE: (Describe the onset of Illness, Intensity of Symptoms, and Circumstances Leading to Admission) This is a 26 year-old undomiciled male who presents to the ED after relapsing on methamphetamine and opiates. Per review of medical records, patient has been abusing several substances including methamphetamines, opiates and benzodiazepines in the past. Patient was last seen about a week ago on the medical floor for similar presentation. Patient was discharged into the care of his stepbrother and he left that place of residence to abuse substances. It appears that the patient is currently homeless. On clinical examination, patient was sedate and mostly unresponsive and unable to provide further clinical information PSYCHIATRIC REVIEW OF SYSTEMS: Substance: Appears to be abusing methamphetamines, Opiates and benzodiazepines frequency and use unknown Depression: Unable to obtain Naz: Unable to obtain Psychosis: Unable to obtain Anxiety/ OCD/ PTSD: Unable to obtain Suicidality: Unable to obtain Other Self-Injurious Behavior: Unable to obtain Violent/ Aggressive Behavior: Unable to obtain CURRENT MEDICATIONS: ( Psychiatric and Non-psychiatric ) Seroquel Celexa ALLERGIES: NKDA PAST PSYCHIATRIC HISTORY: ( Prior Treatment, Precipitating Factors, Diagnosis, and Course of Treatment ) Unable to obtain PAST PSYCHIATRIC MEDICATION TRIALS: Unable to obtain MEDICAL HISTORY: (Chronic and Acute Illnesses, Current Medical Treatment, Recent Hospitalizations) Unable to obtain HISTORY OF TRAUMA/ABUSE: Unable to obtain DRUG / ALCOHOL ABUSE HISTORY: as above Detoxification / Withdrawal: sedated, vitals stable SOCIAL HISTORY: (Educational Level, Employment, Support System, Interpersonal Relationships) homeless FAMILY HISTORY: Psychiatric/Substance Abuse MENTAL STATUS EXAM: General Appearance: Sedated and in hospital gown Sensorium/Consciousness: Arousable to audio commands Eye Contact: Asleep Attitude / Behavior: Asleep, uncooperative Psychomotor & Musculoskeletal Activity: Asleep Mood: Unable to obtain Affect: Unable to obtain Speech / Language: Unable to obtain Thought Processes: Unable to obtain Thought Content: Unable to obtain Perception: Unable to obtain Orientation: Unable to obtain Judgment What would you do if you smelled smoke in a crowded movie theater?: poor/impulsive Insight: poor Intelligence Vocabulary, general fund of knowledge, educational level :Unable to obtain Capacity of ADLs: Unable to assess STRENGTHS: PSYCHOSOCIAL AND ENVIRONMENTAL STRESSORS: Chronic substance abuse and homelessness ADMITTING DIAGNOSES Psychiatric Acute intoxication with methamphetamine and opiates Amphetamine abuse Opiate abuse Benzodiazepine abuse Cannabis abuse Evidence for the following: Rule out major depression Rule out bipolar disorder Medical: n/a INITIAL PLAN OF CARE AND TREATMENT GOALS: Supportive care for opiate abuse Continue to monitor for signs and symptoms of withdrawal Reassess once patient is more alert and awake Home medications have been started, continue to assess response and titrate as necessary
[2017-02-11] MEDS ORDERED: DESYREL PO SCH (22:00)
[2017-02-12 09:09] VITALS: BP 134/64
--- NOTE | 2017-02-12 13:28 | Progress Note ---
Subjective - Reason for Consult Consult date: 02/12/17 Reason for consult: opiate intoxication Mental Status Exam - Vital signs Last Vital Signs Temp 98.1 F 02/12/17 09:08 Pulse 61 02/12/17 09:08 Resp 18 02/12/17 09:08 BP 134/64 02/12/17 09:08 Pulse Ox 97 02/12/17 09:08 Assessment and Plan On clinical examination today, patient remains somewhat sleepy and reporting ongoing symptoms of opiate withdrawal. Patient's vitals are stable. Patient does report he wants some help with substance abuse rehabilitation. Today I discussed the possibility of getting him to such a facility and patient noted that he would like to be referred to [facility] for substance abuse rehabilitation. MENTAL STATUS EXAM: General Appearance: Sedated and in hospital gown Sensorium/Consciousness: Arousable to audio commands Eye Contact: Limited Attitude / Behavior: Cooperative Psychomotor & Musculoskeletal Activity: Unable to assess Mood: Somewhat improved Affect: Constricted Speech / Language: WNL Thought Processes: Organized but perseverative Thought Content: Worried about how he is going to stay clean, denies acute suicidal or homicidal thoughts Perception: No AVH noted Orientation: Person place time and situation Judgment What would you do if you smelled smoke in a crowded movie theater?: Still impulsive but once in psychiatric care for substance abuse Insight: Able to understand that he needs support with abstaining from substances Intelligence Vocabulary, general fund of knowledge, educational level : Average Capacity of ADLs: Independent I. This screening and assessment is based on information collected from the following sources: II. SUICIDE RISK SCREENING (within last 30 days): A.) Suicidal thoughts/behaviors: Recently intoxicated on multiple substances SUICIDE RISK ASSESSMENT III. FACTORS THAT INCREASE RISK: A.) Demographic and Substance Use Factors: Recent substance abuse and intoxication B.) Current/Recent Factors (within past 3 months): Psychosocial/Environmental Factors: Homelessness Physical Illness: None Cognitive/Psychological Factors: None C.) Historical Factors: Previous psychosocial stressors exacerbating his mood symptoms with comorbid substance abuse. D.) Diagnostic/Symptom/Treatment Factors: Currently poor access to mental health care due to lack of insurance E.) Acute Risk Factor Severity (DESC; MILD/MOD/SEVERE) Other factors for this individual that increase risk: IV. FACTORS THAT DECREASE RISK: Resilience/Protective Factors: Intermittent psychosocial supports Other factors for this individual that decrease risk: Patient reports he is future oriented and currently denying a desire to harm self. Patient notes that his abuse pattern is leading to persistent intrusive and ego dystonic suicidal thoughts. V. Clinician's Formulation of Risk and Determination of level of Care: This is a 26-year-old male who is having both chronic and acute stressors which have brought him to the ER. Just prior to the ER presentation patient was intoxicated and verbalized desire to harm himself. Since being hospitalized, the patient has consistently denied the desire to harm himself. He has been in the ER for 2 days and has not shown any gestures and consistently denied desire to harm himself. Additionally, patient is no longer acutely intoxicated and has been abstinent from substances throughout the duration of his hospital stay. Consequently, it is the opinion of the treatment team that the patient is at low risk at the current time given the above interventions that were implemented in his care. Estimation of Imminent Risk: Low due to the above explanation Determination of Level of Care based on Suicide Risk: Outpatient follow-up with a rehab facility and a CSB as the patient has had inpatient level of care in the ER for two days to detox and withdraw safely from his acute heorine and meth intoxication. Furthermore, patient has had consistently denied the desire to harm himself. Additionally, those thoughts were ego-dystonic in nature to begin and the patient had no intent or clear plan to execute on those thoughts. Narrative description of clinical reasoning. (This must be completed on all patients): . Plan and Interventions based on Suicide Risk: This patient will likely be stepped down to an outpatient mental health center with rehab services in the community upon discharge. VII. Discharge/After Hours Support Plan: Patient can return back to the ER, call 911 or crisis line if symptoms of depression, anxiety, suicidality return. INITIAL PLAN OF CARE AND TREATMENT GOALS: Refer patient to substance abuse rehabilitation counseling At the current time patient does not meet criteria to continue on involuntary psychiatric hold; however, he does need substance abuse counseling. Therefore, patient will be referred to outpatient possibly residential substance abuse counseling programs in the community
--- NOTE | 2017-02-12 13:33 | Emergency Department Report ---
Blank Doc - Documentation Documentation: Patient has been reevaluated by psychiatry. Form 1013 has been rescinded. Patient is being referred for outpatient substance abuse counseling. Patient will be discharged home at this time.
== END 2017-02-12 13:45 | disposition home or self-care (01) ==
LOC: EEVIPCON 22:18 → ED 22:18
DX: R45.851 Suicidal ideations (principal); F20.9 Schizophrenia, unspecified; F10.10 Alcohol abuse, uncomplicated; F29 Unspecified psychosis not due to a substance or known physiological condition; F19.10 Other psychoactive substance abuse, uncomplicated; F41.9 Anxiety disorder, unspecified; F32.9 Major depressive disorder, single episode, unspecified
CPT/HCPCS: 36415; 80048; 80074; 80307; 81001; 82550; 85025; 96372; 99284; G0480; J1630; 80320

== ENCOUNTER 2017-07-20 01:53 | Emergency (ER) | payer SELFPAY ==
[2017-07-20 02:55] LABS: Basophils % (Auto) 0.9 % (0.0-1.8); Eosinophils % (Auto) 0.3 % (0.0-4.3); Hematocrit 43.3 % (35.5-45.6); Mean Corpuscular HGB Conc 35 % (32-34); Mean Corpuscular Hemoglobin 31 pg (28-32); Mean Corpuscular Volume 90 fl (84-94); Platelet Count 192 K/mm3 (140-440); Red Blood Count 4.82 M/mm3 (3.65-5.03); Red Cell Distribution Width 12.5 % (13.2-15.2); White Blood Count 9.1 K/mm3 (4.5-11.0)
[2017-07-20 03:16] LABS: Anion Gap 24 mmol/L; BUN/Creatinine Ratio 12; Blood Urea Nitrogen 11 mg/dL (9-20); Calcium 9.4 mg/dL (8.4-10.2); Carbon Dioxide 21 mmol/L (22-30); Glucose 96 mg/dL (75-100); Potassium 3.9 mmol/L (3.6-5.0); Sodium 140 mmol/L (137-145)
[2017-07-20 03:28] VITALS: BP 150/89
[2017-07-20 06:20] LABS: Urine Drugs of Abuse Note Disclamer
[2017-07-20 06:33] LABS: Bilirubin,Urine NEG (Negative); Blood,Urine SM (Negative); Ketones,Urine TR mg/dL (Negative); Leukocyte Esterase,Urine NEG (Negative); Mucus,Urine 3+ /HPF; Nitrite,Urine NEG (Negative); Urobilinogen,Urine < 2.0 mg/dL (<2.0)
== END 2017-07-20 06:10 | disposition left against medical advice (07) ==
LOC: ED 01:53
DX: F11.20 Opioid dependence, uncomplicated (principal); Z53.21 Procedure and treatment not carried out due to patient leaving prior to being seen by health care provider
CPT/HCPCS: 36415; 80048; 80307; 81001; 85025; G0480; 80320

== ENCOUNTER 2021-01-20 22:54 | Emergency (ER) | payer OTHER ==
[2021-01-20] MEDS ORDERED: KETOROLAC 30 MG/1 ML INJ IV ONE (23:14)
[2021-01-20] MEDS ORDERED: ONDANSETRON 4 MG/2 ML INJ IV ONE (23:14)
[2021-01-20] MEDS ORDERED: SODIUM CHLORIDE 0.9% 1000 ML 1,000 ML IV ONE ×2 (23:14→23:16)
--- NOTE | 2021-01-20 23:16 | Emergency Department Report ---
ED Abdominal Pain HPI - General Chief Complaint: Abdominal Pain Stated Complaint: KIDNEY PAIN PUI?: No Time Seen by Provider: 01/20/21 23:11 Source: patient Mode of arrival: Ambulatory Limitations: No Limitations - History of Present Illness Initial Comments: Patient is a 30-year-old male who presents emergency room with complaints of right flank pain. Patient states that his pain started approximately 3 days ago. Patient states the pain is worsening. Patient states he has a history of kidney stone. Patient states that he was diagnosed kidney stone last January and it continues to have intermittent pain. Patient states the pain is constant now and is not going away. Patient states he is also having nausea. Patient denies vomiting. Patient denies dysuria. Patient denies fever chills. Patient states he is sweating a lot. Patient states he is been also smoking a lot of meth. Patient states he uses meth regularly. Patient denies shortness of breath. Patient denies chest pain. Patient denies recent travel. Patient denies recent international travel. Patient denies exposure to the novel coronavirus. Patient denies sick contacts. Patient denies fever and chills. Patient denies cough. Patient denies diarrhea. Patient denies coming in contact with anybody with symptoms of the novel coronavirus. MD Complaint: abdominal pain -: Sudden Location: R flank Radiation: RLQ, back Migration to: no migration Severity: severe Severity scale (0 -10): 10 Quality: stabbing Consistency: constant Improves With: rest Worsens With: movement Associated Symptoms: nausea - Related Data Previous Rx's Medication Instructions Recorded Last Taken Type Citalopram [Celexa] 20 mg PO QDAY #30 tablet 02/12/17 Unknown Rx QUEtiapine [SEROquel] 200 mg PO QDAY #30 tablet 02/12/17 Unknown Rx traZODone [Desyrel] 150 mg PO QHS #30 tablet 02/12/17 Unknown Rx Tamsulosin [Flomax] 0.4 mg PO QDAY 14 Days #14 cap 01/21/21 Unknown Rx Allergies Allergy/AdvReac Type Severity Reaction Status Date / Time No Known Allergies Allergy Verified 01/13/17 08:57 ED Review of Systems ROS: Stated complaint: KIDNEY PAIN Other details as noted in HPI Constitutional: diaphoresis Eyes: denies: eye pain, eye discharge, vision change ENT: denies: ear pain, throat pain Respiratory: denies: cough, shortness of breath, wheezing Cardiovascular: denies: chest pain, palpitations Endocrine: no symptoms reported Gastrointestinal: as per HPI, abdominal pain, nausea. denies: diarrhea Genitourinary: denies: urgency, dysuria Musculoskeletal: denies: back pain, joint swelling, arthralgia Skin: denies: rash, lesions Neurological: denies: headache, weakness, paresthesias Psychiatric: denies: anxiety, depression, auditory hallucinations, visual hallucinations, homicidal thoughts, suicidal thoughts Hematological/Lymphatic: denies: easy bleeding, easy bruising ED Past Medical Hx - Past Medical History Previous Medical History?: Yes Hx Hypertension: No Hx Heart Attack/AMI: No Hx Congestive Heart Failure: No Hx Diabetes: No Hx Deep Vein Thrombosis: No Hx Pulmonary Embolism: No Hx Liver Disease: No Hx Renal Disease: No Hx Arthritis: No Hx Seizures: No Hx Kidney Stones: No Hx Psychiatric Treatment: Yes (BIPOLAR/SCHIZO/PANIC ATTACKS/ANXIETY/DEPRESSION) Hx Asthma: No Hx COPD: No Hx Tuberculosis: No Hx Dementia: No Hx HIV: No Additional medical history: Substance abuse - Surgical History Past Surgical History?: No Hx Coronary Stent: No Hx Pacemaker: No Hx Internal Defibrillator: No - Family History Family history: no significant - Social History Smoking Status: Current Every Day Smoker Substance Use Type: Alcohol, Methamphetamines - Medications Home Medications: Home Medications Medication Instructions Recorded Confirmed Last Taken Type Citalopram [Celexa] 20 mg PO QDAY #30 tablet 02/12/17 Unknown Rx QUEtiapine [SEROquel] 200 mg PO QDAY #30 tablet 02/12/17 Unknown Rx traZODone [Desyrel] 150 mg PO QHS #30 tablet 02/12/17 Unknown Rx Tamsulosin [Flomax] 0.4 mg PO QDAY 14 Days #14 cap 01/21/21 Unknown Rx ED Physical Exam - General Limitations: No Limitations General appearance: alert - Head Head exam: Present: atraumatic, normocephalic - Eye Eye exam: Present: normal appearance - ENT ENT exam: Present: mucous membranes moist - Neck Neck exam: Present: normal inspection - Respiratory Respiratory exam: Present: normal lung sounds bilaterally. Absent: respiratory distress - Cardiovascular Cardiovascular Exam: Present: regular rate, normal rhythm. Absent: systolic murmur, diastolic murmur, rubs, gallop - GI/Abdominal GI/Abdominal exam: Present: soft, tenderness (Right flank tenderness to palpation.), normal bowel sounds - Rectal Rectal exam: Present: deferred - Extremities Exam Extremities exam: Present: normal inspection - Back Exam Back exam: Present: normal inspection - Neurological Exam Neurological exam: Present: alert, oriented X3 - Psychiatric Psychiatric exam: Present: normal affect, normal mood - Skin Skin exam: Present: warm, dry, normal color, diaphoretic. Absent: rash ED Course Vital Signs 01/20/21 01/20/21 01/21/21 23:03 23:05 00:05 Temperature 99.3 F Pulse Rate 172 H 159 H 111 H Respiratory 18 20 19 Rate Blood Pressure 166/82 Blood Pressure 163/121 168/108 [Right] O2 Sat by Pulse 100 98 99 Oximetry 01/21/21 01/21/21 01:01 01:20 Temperature Pulse Rate 97 H 105 H Respiratory 20 19 Rate Blood Pressure Blood Pressure 156/96 154/85 [Right] O2 Sat by Pulse 98 98 Oximetry - Reevaluation(s) Reevaluation #1: Patient heart rate better. Patient states he is feeling much better. Patient denies pain at this time. Patient states his diaphoresis has resolved. Patient states his nausea has resolved. 01/21/21 00:29 Reevaluation #2: Patient's heart rate is 103. Patient states he feels better. Patient denies nausea vomiting. Denies pain. Patient denies dizziness. Patient denies palpitations. I discussed all results and clinical findings with patient. I discussed plan of care with patient. Patient agrees with plan of care. Patient is stable for discharge. Patient will be discharged home. Patient given discharge instructions. Patient voiced understanding of discharge instructions. 01/21/21 01:10 ED Medical Decision Making - Lab Data Result diagrams: 01/20/21 23:25 01/20/21 23:25 - Medical Decision Making Patient is a 30-year-old male who presents emergency room with complaints of diaphoresis, right flank pain. Patient found to be severely tachycardic in triage. Patient immediately transferred to acute care area. Patient had IV placed and fluids were given. Patient had labs drawn. Patient's labs were essentially unremarkable except for hematuria on UA and UDS positive for cocaine and amphetamines.. Patient had a CT scan without contrast and it showed bilateral kidney stones that were nonobstructing. Patient pain was resolved with fluids. Patient tachycardia was resolved with fluids. Patient states he feels much better after fluids. Patient responded well to treatment. Patient stable for discharge. Critical care time documented due to the multiple reassessments, prolonged time at the bedside, interpretation of diagnostics and labs. - Differential Diagnosis Dehydration, electrolyte imbalance, methamphetamine abuse, kidney stone, UT Critical Care Time: Yes Critical care time in (mins) excluding proc time.: 35 Critical care attestation.: If time is entered above; I have spent that time in minutes in the direct care of this critically ill patient, excluding procedure time. Critical Care Time: 35 minutes ED Disposition Clinical Impression: Tachycardia, Methamphetamine abuse, Flank pain, acute, Renal stone, Dehydration, moderate Drug overdose Qualifiers: Encounter type: initial encounter Injury intent: accidental or unintentional Qualified Code(s): T50.901A - Poisoning by unspecified drugs, medicaments and biological substances, accidental (unintentional), initial encounter Disposition: TO HOME OR SELFCARE Is pt being admited?: No Does the pt Need Aspirin: No Condition: Stable Instructions: Amphetamines Use Disorder, Renal Colic, [id number], Kidney Stones, [id number], Dehydration, Adult, [id number], Flank Pain, Adult, [id number], Methamphetamines Use Disorder Additional Instructions: Patient to follow-up with primary care in 2 to 3 days. Patient to follow-up with urologist in 2 to 3 days. Patient to avoid drug use. Patient to rest. Patient to increase water. Patient to avoid strenuous exercise or heavy lifting until cleared by primary care and urologist. Patient to take Tylenol or ibuprofen as needed for pain. Patient to take meds as directed. Patient to return to the ER if condition worsens, changes or new symptoms arise. Prescriptions: Tamsulosin [Flomax] 0.4 mg PO QDAY 14 Days #14 cap Referrals: HERNAN CH MD [Staff Physician] - 2-3 Days DIDI PRIEST MD [Staff Physician] - 2-3 Days Time of Disposition: 01:13
[2021-01-20 23:33] LABS: Basophils # (Auto) 0.1 K/mm3 (0.0-0.1); Basophils % (Auto) 0.9 % (0.0-1.8); Eosinophils % (Auto) 0.2 % (0.0-4.3); Hemoglobin 16.2 gm/dl (11.8-15.2); Lymphocytes # (Auto) 1.6 K/mm3 (1.2-5.4); Lymphocytes % (Auto) 14.6 % (13.4-35.0); Mean Corpuscular HGB Conc 35 % (32-34); Mean Corpuscular Volume 92 fl (84-94); Monocytes # (Auto) 0.7 K/mm3 (0.0-0.8); Monocytes % (Auto) 6.4 % (0.0-7.3); Platelet Count 180 K/mm3 (140-440); Red Blood Count 5.01 M/mm3 (3.65-5.03); Red Cell Distribution Width 13.8 % (13.2-15.2)
[2021-01-20 23:56] LABS: Alanine Aminotransferase 133 units/L (7-56); Albumin 4.9 g/dL (3.9-5); BUN/Creatinine Ratio 10; Bilirubin,Direct 0.2 mg/dL (0-0.2); Blood Urea Nitrogen 12 mg/dL (9-20); Calcium 9.7 mg/dL (8.4-10.2); Hemolysis Index 18
--- NOTE | 2021-01-20 23:58 | Cat Scan Report ---
CT ABDOMEN AND PELVIS WITHOUT CONTRAST INDICATION: rt flank pain CONTRAST: Without IV COMPARISON: None available. All CT scans at this location are performed using CT dose reduction for ALARA by means of automated e xposure control. FINDINGS: Lung bases are clear. No pneumoperitoneum is seen. No masses are noted. Gallbladder and tommy e ducts appear within normal limits. No free fluid is seen. No evidence of bowel obstruction is noted . Appendix appears within normal limits. No focal inflammatory changes are seen. Moderate bilateral nephrolithiasis is seen which is more prominent on the right. I do not see obstruc tive change. Ureters and bladder appear within normal limits. Prostate and seminal vesicles show no a bnormalities. IMPRESSION: Bilateral nephrolithiasis without acute change seen Signer Name: Bill Anderson MD Signed: 01/20/2021 11:54 PM Workstation Name: [id number]
[2021-01-21 01:02] LABS: Bilirubin,Urine NEG (Negative); Blood,Urine NEG (Negative); Color,Urine Yellow (Yellow); Mucus,Urine FEW /HPF; Urobilinogen,Urine < 2.0 mg/dL (<2.0)
[2021-01-21 01:20] VITALS: BP 154/85
[2021-01-21 01:21] LABS: Benzodiazepines Screen,Urine Negative; Methadone Screen,Urine Negative; Opiate Screen,Urine Negative
[2021-01-21 01:33] LABS: Amphetamine Screen,Urine Positive; Cannabinoid Screen,Urine Positive; Cocaine Screen,Urine Positive
== END 2021-01-21 01:25 | disposition home or self-care (01) ==
LOC: ED 22:54
DX: T50.901A Poisoning by unspecified drugs, medicaments and biological substances, accidental (unintentional), initial encounter (principal); F15.10 Other stimulant abuse, uncomplicated; E86.0 Dehydration; N20.0 Calculus of kidney; R10.9 Unspecified abdominal pain; R00.0 Tachycardia, unspecified; F25.0 Schizoaffective disorder, bipolar type; F41.9 Anxiety disorder, unspecified; F17.200 Nicotine dependence, unspecified, uncomplicated; Z79.899 Other long term (current) drug therapy; Y92.89 Other specified places as the place of occurrence of the external cause
CPT/HCPCS: 36415; 74176; 80048; 80076; 80307; 81001; 85025; 96361; 96374; 96375; 99284; J1885; J2405; J7030

== ENCOUNTER 2022-02-21 02:57 | Emergency (ER) | payer SELFPAY ==
[2022-02-21] MEDS ORDERED: LACTATED RINGERS 1,000 ML IV ONE (03:19)
[2022-02-21] MEDS ORDERED: PANTOPRAZOLE 40 MG INJ IV ONE (03:19)
--- NOTE | 2022-02-21 03:38 | Emergency Department Report ---
ED General Adult HPI - General Chief complaint: Medical Clearance Stated complaint: can i have some water Time Seen by Provider: 02/21/22 03:13 Source: patient, EMS (Verbal report received from emergency medical services. EMS documentation not available at time of chart dictation ), RN notes reviewed Mode of arrival: Stretcher Limitations: No Limitations - History of Present Illness Initial comments: The patient was evaluated in the emergency department for symptoms described in the history of present illness. He/she was evaluated in the context of the global COVID-19 pandemic, which necessitated consideration that the patient might be at risk for infection with the virus that causes COVID-19. Institutional protocols and algorithms that pertain to the evaluation of patients at risk for COVID-19 are in a state of rapid change based on inform ation released by regulatory bodies including the CDC and federal and state organizations. These policies and algorithms were followed during the patient's care in the emergency department. Please note that these policies, procedures and recommendations changed on a rapid basis. This is a 31-year-old gentleman who was brought to the hospital by emergency medical services. Patient himself complains of chronic abdominal pain and is requesting to drink water. The patient currently denies headache, neck pain, chest pain, vomiting, diarrhea, testicular pain and urinary symptoms. He is not homicidal or suicidal. He is homeless, but reports that he has local family. As per EMS, the patient was at a local [employer], and consumed alcohol and methamphetamines. Thus, 911 was activated. EMS reports unremarkable vital signs, with exception of tachycardia. -: This morning Consistency: intermittent Improves with: none Worsens with: none Associated Symptoms: denies other symptoms - Related Data Previous Rx's Medication Instructions Recorded Last Taken Type Citalopram [Celexa] 20 mg PO QDAY #30 tablet 02/12/17 Unknown Rx QUEtiapine [SEROquel] 200 mg PO QDAY #30 tablet 02/12/17 Unknown Rx traZODone [Desyrel] 150 mg PO QHS #30 tablet 02/12/17 Unknown Rx Tamsulosin [Flomax] 0.4 mg PO QDAY 14 Days #14 cap 01/21/21 Unknown Rx Allergies Allergy/AdvReac Type Severity Reaction Status Date / Time No Known Allergies Allergy Verified 01/13/17 08:57 ED Review of Systems ROS: Stated complaint: CHEST PAIN Other details as noted in HPI Constitutional: denies: fever Eyes: denies: eye discharge ENT: denies: epistaxis Respiratory: denies: cough Cardiovascular: denies: chest pain Gastrointestinal: abdominal pain (Chronic) Genitourinary: denies: dysuria Psychiatric: denies: homicidal thoughts, suicidal thoughts ED Past Medical Hx - Past Medical History Hx Hypertension: No Hx Heart Attack/AMI: No Hx Congestive Heart Failure: No Hx Diabetes: No Hx Deep Vein Thrombosis: No Hx Pulmonary Embolism: No Hx Liver Disease: No Hx Renal Disease: No Hx Arthritis: No Hx Seizures: No Hx Kidney Stones: No Hx Psychiatric Treatment: Yes (BIPOLAR/SCHIZO/PANIC ATTACKS/ANXIETY/DEPRESSION) Hx Asthma: No Hx COPD: No Hx Tuberculosis: No Hx Dementia: No Hx HIV: No Additional medical history: Substance abuse - Surgical History Hx Coronary Stent: No Hx Pacemaker: No Hx Internal Defibrillator: No - Social History Smoking Status: Current Every Day Smoker Substance Use Type: Alcohol, Methamphetamines - Medications Home Medications: Home Medications Medication Instructions Recorded Confirmed Last Taken Type Citalopram [Celexa] 20 mg PO QDAY #30 tablet 02/12/17 Unknown Rx QUEtiapine [SEROquel] 200 mg PO QDAY #30 tablet 02/12/17 Unknown Rx traZODone [Desyrel] 150 mg PO QHS #30 tablet 02/12/17 Unknown Rx Tamsulosin [Flomax] 0.4 mg PO QDAY 14 Days #14 cap 01/21/21 Unknown Rx ED Physical Exam - General General appearance: alert, anxious - Head Head exam: Present: atraumatic, normocephalic - Eye Eye exam: Present: normal appearance, EOMI. Absent: nystagmus - ENT ENT exam: Present: mucous membranes dry, normal external ear exam. Absent: normal orophraynx (Poor dentition) - Neck Neck exam: Present: normal inspection, full ROM. Absent: tenderness, meningismus - Respiratory Respiratory exam: Present: normal lung sounds bilaterally. Absent: respiratory distress, wheezes, rales, rhonchi, stridor, decreased breath sounds - Cardiovascular Cardiovascular Exam: Present: normal rhythm, tachycardia, normal heart sounds. Absent: bradycardia, irregular rhythm, systolic murmur, diastolic murmur, rubs, gallop - GI/Abdominal GI/Abdominal exam: Present: soft. Absent: distended, tenderness, guarding, rebound, rigid, pulsatile mass - Rectal Rectal exam: Present: deferred - Extremities Exam Extremities exam: Present: normal inspection, full ROM, other (2+ pulses noted in the bilateral upper and lower extremities. There is no palpable cord. negative Homans sign. Muscular compartments are soft. The pelvis is stable.). Absent: pedal edema, calf tenderness - Back Exam Back exam: Present: normal inspection. Absent: tenderness, CVA tenderness (R), CVA tenderness (L), paraspinal tenderness, vertebral tenderness - Neurological Exam Neurological exam: Present: alert, oriented X3, other (No facial droop. Tongue midline. Extraocular movements intact bilaterally. Facial sensation intact to light touch in V1, V2, V3 distribution bilaterally. 5 and a 5 strength in 4 extremities. Sensation intact to light touch in 4 extremities.). Absent: motor sensory deficit - Psychiatric Psychiatric exam: Present: flat affect. Absent: homicidal ideation, suicidal ideation - Skin Skin exam: Present: warm, dry, intact, normal color. Absent: rash ED Course Vital Signs 02/21/22 02/21/22 03:35 03:49 Temperature 98.6 F Pulse Rate 98 H Respiratory 18 Rate Blood Pressure 151/93 [Left] O2 Sat by Pulse 100 Oximetry O2 Sat by Pulse 99 Oximetry [ Digit-Finger] - Reevaluation(s) Reevaluation #1: 02/21/22 03:36 Differential diagnosis, including but not limited to: Methamphetamine abuse, alcohol abuse, dehydration, homelessness, encounter for medical screening examination, encounter for behavioral health screening examination Assessment and plan, 31-year-old gentleman, who is pleasant, calm and cooperative, somewhat anxious, clinically sober, presenting with probable methamphetamine and alcohol use. Obtain complete laboratory studies, treat symptoms, EKG. He does not meet criteria for 1013 hold or involuntary confinement. He is anxious, but directable, and appears to exhibit decision-making capacity. Reassessed. 02/21/22 04:26 Patient resting comfortably in stretcher. Laboratory studies unremarkable with the exception of transaminitis likely secondary to known history of hepatitis C. Patient will be discharged with outpatient follow-up at this time. He does not appear to have an emergent medical or psychiatric condition present that would preclude discharge. He does not meet criteria for 1013 hold. - Pulse Oximetry Interpretation Digit-Finger Initial Pulse Oximetry Readin O2 Sat by Pulse Oximetry: 99 Actions Taken: none ED Medical Decision Making - Lab Data Result diagrams: 02/21/22 03:32 02/21/22 03:32 Vital Signs 02/21/22 02/21/22 03:35 03:38 Temperature 98.6 F Pulse Rate 98 H Respiratory 18 Rate Blood Pressure 151/93 [Left] O2 Sat by Pulse 100 Oximetry O2 Sat by Pulse 99 Oximetry [ Digit-Finger] Vital Signs 02/21/22 02/21/22 03:35 03:38 Temperature 98.6 F Pulse Rate 98 H Respiratory 18 Rate Blood Pressure 151/93 [Left] O2 Sat by Pulse 100 Oximetry O2 Sat by Pulse 99 Oximetry [ Digit-Finger] Lab Results 02/21/22 02/21/22 02/21/22 Range/Units 03:32 03:32 03:32 Hgb 14.6 (11.8-15.2) gm/dl Hct 42.0 (35.5-45.6) % PT (12.2-14.9) Sec. INR (0.87-1.13) Sodium 139 (137-145) mmol/L Potassium 4.4 (3.6-5.0) mmol/L Chloride 101.8 (98-107) mmol/L Carbon Dioxide 26 (22-30) mmol/L Anion Gap 16 mmol/L BUN 8 L (9-20) mg/dL Creatinine 1.1 (0.8-1.3) mg/dL Estimated GFR > 60 ml/min BUN/Creatinine Ratio 7 % Glucose 105 H (75-100) mg/dL Calcium 9.8 (8.4-10.2) mg/dL Magnesium 2.10 (1.7-2.3) mg/dL Total Bilirubin 0.50 (0.1-1.2) mg/dL AST 113 H (5-40) units/L ALT 128 H (7-56) units/L Alkaline Phosphatase 99 (35-129) units/L Total Creatine Kinase 128 (55-170) units/L Total Protein 7.3 (6.3-8.2) g/dL Albumin 4.9 (3.9-5) g/dL Albumin/Globulin Ratio 2.0 % Salicylates < 0.3 L (2.8-20.0) mg/dL Acetaminophen (10.0-30.0) ug/mL Plasma/Serum Alcohol (0-0.07) % 02/21/22 02/21/22 02/21/22 Range/Units 03:32 03:32 03:32 Hgb (11.8-15.2) gm/dl Hct (35.5-45.6) % PT 12.0 L (12.2-14.9) Sec. INR 0.79 L (0.87-1.13) Sodium (137-145) mmol/L Potassium (3.6-5.0) mmol/L Chloride (98-107) mmol/L Carbon Dioxide (22-30) mmol/L Anion Gap mmol/L BUN (9-20) mg/dL Creatinine (0.8-1.3) mg/dL Estimated GFR ml/min BUN/Creatinine Ratio % Glucose (75-100) mg/dL Calcium (8.4-10.2) mg/dL Magnesium (1.7-2.3) mg/dL Total Bilirubin (0.1-1.2) mg/dL AST (5-40) units/L ALT (7-56) units/L Alkaline Phosphatase (35-129) units/L Total Creatine Kinase (55-170) units/L Total Protein (6.3-8.2) g/dL Albumin (3.9-5) g/dL Albumin/Globulin Ratio % Salicylates (2.8-20.0) mg/dL Acetaminophen 5.0 L (10.0-30.0) ug/mL Plasma/Serum Alcohol < 0.01 (0-0.07) % - EKG Data -: EKG Interpreted by Ks EKG shows normal: sinus rhythm Rate: tachycardia - EKG Data 02/21/22 03:49 The EKG is interpreted at 03: 45 Sinus rhythm, tachycardia, rate 104 bpm. Normal axis, normal P wave axis, QTC 4 6 5 ms, and high left ventricular voltage. This is an abnormal EKG. This is not a STEMI Critical care attestation.: If time is entered above; I have spent that time in minutes in the direct care of this critically ill patient, excluding procedure time. ED Disposition Clinical Impression: Methamphetamine abuse, Alcohol abuse, Homelessness, Encounter for behavioral health screening, Encounter for medical screening examination Disposition: HOME / SELF CARE / HOMELESS Is pt being admited?: No Does the pt Need Aspirin: No Condition: Good Additional Instructions: Please follow-up with an outpatient mental health specialist within the next week. Avoid consumption of alcohol, tobacco, smoke products and recreational drugs. Please return to the emergency room right away with new pain, worsened pain, mi gration of pain, projectile vomiting, change in mental status, confusion, inability tolerate liquid feeds, new, worsened or different symptoms not present on the initial emergency room evaluation professional and Agency Contacts To help Resolve Crises (19/03) [place] Crisis Line: Suicide Prevention Line: Crisis Text Line: Text ``START to 654519 Emergency: 911 Outpatient COMMUNITY Behavioral Health Resources: [facility]: [facility] [address] [place], [place] [address] [facility] [address] [place] [address] Sunday thru Sunday - 8am - 5pm Call to schedule an assessment for mental health and substance abuse programs [facility] Address: [address] [place] [address] Sunday thru Sunday- 7am-2pm [facility] Address: [address] [place] [address] Sunday thrsunday: 8:30AM-5PM Take a multivitamin [id number] on a daily basis. Drink 6 cups of water per day indefinitely. Eat at least 4-5 balanced meals on a daily basis Referrals: [facility] [Outside] - 3-5 Days [facility]
[2022-02-21] MEDS ORDERED: MIDAZOLAM 2 MG/2 ML INJ IV ONE (03:48)
[2022-02-21 03:49] LABS: Hemoglobin 14.6 gm/dl (11.8-15.2)
[2022-02-21 04:02] LABS: INR 0.79 (0.87-1.13)
[2022-02-21 04:12] LABS: Alanine Aminotransferase 128 units/L (7-56); Albumin 4.9 g/dL (3.9-5); BUN/Creatinine Ratio 7; Blood Urea Nitrogen 8 mg/dL (9-20); Calcium 9.8 mg/dL (8.4-10.2); Hemolysis Index 15
[2022-02-21 04:53] VITALS: BP 160/101
--- NOTE | 2022-02-21 12:21 | Electrocardiograph Report ---
[facility] Test Date: 2022-02-21 Test Time: 03:45:58 Pat Name: SD YEUNG Department: Room: Gender: M [employer] Worker: EWA : 1990 Requested By: EDELMIRA LYON Order Number: [id number] Reading MD: Brandon Jennings Measurements Intervals [place] Rate: 104 P: 67 FL: 163 QRS: 64 QRSD: 88 T: 42 QT: 353 QTc: 465 Interpretive Statements Sinus tachycardia No previous ECG available for comparison Electronically Signed On 02-21-2022 12:21:37 EDT by Brandon Jennings
== END 2022-02-21 04:45 | disposition home or self-care (01) ==
LOC: ED 02:57
DX: F15.20 Other stimulant dependence, uncomplicated (principal); F10.10 Alcohol abuse, uncomplicated; Z59.00 Homelessness unspecified; Z00.00 Encounter for general adult medical examination without abnormal findings; F17.200 Nicotine dependence, unspecified, uncomplicated
CPT/HCPCS: 36415; 80053; 82550; 83735; 85014; 85018; 85610; 93005; 96361; 96374; 99284; C9113; J7120; 80320; G0480

== ENCOUNTER 2022-02-21 05:49 | Emergency (ER) | payer SELFPAY ==
[2022-02-21 06:33] VITALS: BP 173/99
== END 2022-02-21 11:52 | disposition left against medical advice (07) ==
LOC: ED 05:49
DX: H53.8 Other visual disturbances (principal); Z53.21 Procedure and treatment not carried out due to patient leaving prior to being seen by health care provider

== ENCOUNTER 2022-04-05 03:28 | Emergency (ER) | payer SELFPAY ==
[2022-04-05 05:48] LABS: Basophils % (Auto) 0.8 % (0.0-1.8); Eosinophils % (Auto) 0.3 % (0.0-4.3); Hematocrit 42.1 % (35.5-45.6); Hemoglobin 14.8 gm/dl (11.8-15.2); Lymphocytes % (Auto) 18.5 % (13.4-35.0); Mean Corpuscular HGB Conc 35 % (32-34); Mean Corpuscular Volume 93 fl (84-94); Monocytes # (Auto) 0.5 K/mm3 (0.0-0.8); Monocytes % (Auto) 9.9 % (0.0-7.3); Platelet Count 149 K/mm3 (140-440); Red Blood Count 4.53 M/mm3 (3.65-5.03); Red Cell Distribution Width 12.7 % (13.2-15.2)
[2022-04-05 06:09] LABS: Alanine Aminotransferase 112 units/L (7-56); Albumin 4.7 g/dL (3.9-5); BUN/Creatinine Ratio 11; Blood Urea Nitrogen 10 mg/dL (9-20); Calcium 9.8 mg/dL (8.4-10.2); Hemolysis Index 4
[2022-04-05 06:21] LABS: Free T4 (Free Thyroxine) 1.24 ng/dL (0.76-1.46)
[2022-04-05 06:48] LABS: Amphetamine Screen,Urine Negative; Benzodiazepines Screen,Urine Negative; Cocaine Screen,Urine Negative; Methadone Screen,Urine Negative; Opiate Screen,Urine Negative
[2022-04-05 07:10] LABS: Cannabinoid Screen,Urine Positive
--- NOTE | 2022-04-05 07:31 | Emergency Department Report ---
History of Present Illness - General Chief Complaint: Overdose Stated Complaint: PARANOIA/METH USE Time Seen by Provider: 04/05/22 06:10 Source: patient, EMS Mode of arrival: Ambulatory Limitations: No Limitations - History of Present Illness Initial Comments: 31-year-old male with a past medical history of bipolar disorder, schizophrenia, panic attacks, and substance abuse presents to the hospital complaining of paranoia after meth use. Patient states he smoked meth and does not and does not like his current high symptoms. He was initially feeling jittery, palpitations, paranoia. Physical complaints have decreased blood but paranoia persists. He is requesting Ativan to calm him down. Denies hallucinations, suicidal, and homicidal thoughts. He is also requesting information regarding detox/substance abuse treatment - Related Data Previous Rx's Medication Instructions Recorded Last Taken Type Citalopram [Celexa] 20 mg PO QDAY #30 tablet 02/12/17 Unknown Rx QUEtiapine [SEROquel] 200 mg PO QDAY #30 tablet 02/12/17 Unknown Rx traZODone [Desyrel] 150 mg PO QHS #30 tablet 02/12/17 Unknown Rx Tamsulosin [Flomax] 0.4 mg PO QDAY 14 Days #14 cap 01/21/21 Unknown Rx Allergies Allergy/AdvReac Type Severity Reaction Status Date / Time No Known Allergies Allergy Verified 01/13/17 08:57 ED Review of Systems ROS: Stated complaint: PARANOIA/METH USE Other details as noted in HPI Comment: All other systems reviewed and negative ED Past Medical Hx - Past Medical History Previous Medical History?: Yes Hx Hypertension: No Hx Heart Attack/AMI: No Hx Congestive Heart Failure: No Hx Diabetes: No Hx Deep Vein Thrombosis: No Hx Pulmonary Embolism: No Hx Liver Disease: No Hx Renal Disease: No Hx Arthritis: No Hx Seizures: No Hx Kidney Stones: No Hx Psychiatric Treatment: Yes (BIPOLAR/SCHIZO/PANIC ATTACKS/ANXIETY/DEPRESSION) Hx Asthma: No Hx COPD: No Hx Tuberculosis: No Hx Dementia: No Hx HIV: No Additional medical history: Substance abuse - Surgical History Past Surgical History?: No Hx Coronary Stent: No Hx Pacemaker: No Hx Internal Defibrillator: No - Social History Smoking Status: Current Every Day Smoker Substance Use Type: Alcohol - Medications Home Medications: Home Medications Medication Instructions Recorded Confirmed Last Taken Type Citalopram [Celexa] 20 mg PO QDAY #30 tablet 02/12/17 Unknown Rx QUEtiapine [SEROquel] 200 mg PO QDAY #30 tablet 02/12/17 Unknown Rx traZODone [Desyrel] 150 mg PO QHS #30 tablet 02/12/17 Unknown Rx Tamsulosin [Flomax] 0.4 mg PO QDAY 14 Days #14 cap 01/21/21 Unknown Rx ED Physical Exam - General Limitations: No Limitations - Other Other exam information: General: No acute distress Head: Atraumatic Eyes: normal appearance ENT: Moist mucous membranes Neck: Normal appearance, no midline tenderness Chest: Clear to auscultation bilaterally CV: Regular rate and rhythm Abdomen: Soft, normal bowel sounds, nontender, nondistended, no rebound or guarding Back: Normal inspection Extremity: Normal inspection, full range of motion Neuro: Alert O x 3, no facial asymmetry, speech clear, no gross motor sensory deficit Psych: Appropriate behavior Skin: Scattered warts noted to posterior right hand ED Course Vital Signs 04/05/22 04/05/22 03:57 06:11 Temperature 98 F Pulse Rate 85 Respiratory 16 Rate Blood Pressure 150/96 Blood Pressure 142/85 [Left] O2 Sat by Pulse 95 100 Oximetry ED Medical Decision Making - Lab Data Result diagrams: 04/05/22 05:09 04/05/22 05:09 Lab Results 04/05/22 04/05/22 04/05/22 Range/Units 05:09 05:09 05:09 WBC 5.3 (4.5-11.0) K/mm3 RBC 4.53 (3.65-5.03) M/mm3 Hgb 14.8 (11.8-15.2) gm/dl Hct 42.1 (35.5-45.6) % MCV 93 (84-94) fl MCH 33 H (28-32) pg MCHC 35 H (32-34) % RDW 12.7 L (13.2-15.2) % Plt Count 149 (140-440) K/mm3 Lymph % (Auto) 18.5 (13.4-35.0) % [place] % (Auto) 9.9 H (0.0-7.3) % Eos % (Auto) 0.3 (0.0-4.3) % Baso % (Auto) 0.8 (0.0-1.8) % Lymph # (Auto) 1.0 L (1.2-5.4) K/mm3 [place] # (Auto) 0.5 (0.0-0.8) K/mm3 Eos # (Auto) 0.0 (0.0-0.4) K/mm3 Baso # (Auto) 0.0 (0.0-0.1) K/mm3 Seg Neutrophils % 70.5 H (40.0-70.0) % Seg Neutrophils # 3.8 (1.8-7.7) K/mm3 Sodium 137 (137-145) mmol/L Potassium 3.5 L (3.6-5.0) mmol/L Chloride 98.0 (98-107) mmol/L Carbon Dioxide 27 (22-30) mmol/L Anion Gap 16 mmol/L BUN 10 (9-20) mg/dL Creatinine 0.9 (0.8-1.3) mg/dL Estimated GFR > 60 ml/min BUN/Creatinine Ratio 11 % Glucose 92 (75-100) mg/dL Calcium 9.8 (8.4-10.2) mg/dL Total Bilirubin 1.10 (0.1-1.2) mg/dL AST 99 H (5-40) units/L ALT 112 H (7-56) units/L Alkaline Phosphatase 105 (35-129) units/L Total Creatine Kinase 146 (55-170) units/L Troponin T < 0.010 (0.00-0.029) ng/mL Total Protein 7.4 (6.3-8.2) g/dL Albumin 4.7 (3.9-5) g/dL Albumin/Globulin Ratio 1.7 % TSH 1.600 (0.270-4.200) mlU/mL Free T4 1.24 (0.76-1.46) ng/dL Urine Opiates Screen Urine Methadone Screen Ur Barbiturates Screen Ur Phencyclidine Scrn Ur Amphetamines Screen U Benzodiazepines Scrn Urine Cocaine Screen U Marijuana (THC) Screen Drugs of Abuse Note Plasma/Serum Alcohol (0-0.07) % 04/05/22 04/05/22 Range/Units 05:09 05:52 WBC (4.5-11.0) K/mm3 RBC (3.65-5.03) M/mm3 Hgb (11.8-15.2) gm/dl Hct (35.5-45.6) % MCV (84-94) fl MCH (28-32) pg MCHC (32-34) % RDW (13.2-15.2) % Plt Count (140-440) K/mm3 Lymph % (Auto) (13.4-35.0) % [place] % (Auto) (0.0-7.3) % Eos % (Auto) (0.0-4.3) % Baso % (Auto) (0.0-1.8) % Lymph # (Auto) (1.2-5.4) K/mm3 [place] # (Auto) (0.0-0.8) K/mm3 Eos # (Auto) (0.0-0.4) K/mm3 Baso # (Auto) (0.0-0.1) K/mm3 Seg Neutrophils % (40.0-70.0) % Seg Neutrophils # (1.8-7.7) K/mm3 Sodium (137-145) mmol/L Potassium (3.6-5.0) mmol/L Chloride (98-107) mmol/L Carbon Dioxide (22-30) mmol/L Anion Gap mmol/L BUN (9-20) mg/dL Creatinine (0.8-1.3) mg/dL Estimated GFR ml/min BUN/Creatinine Ratio % Glucose (75-100) mg/dL Calcium (8.4-10.2) mg/dL Total Bilirubin (0.1-1.2) mg/dL AST (5-40) units/L ALT (7-56) units/L Alkaline Phosphatase (35-129) units/L Total Creatine Kinase (55-170) units/L Troponin T (0.00-0.029) ng/mL Total Protein (6.3-8.2) g/dL Albumin (3.9-5) g/dL Albumin/Globulin Ratio % TSH (0.270-4.200) mlU/mL Free T4 (0.76-1.46) ng/dL Urine Opiates Screen Negative Urine Methadone Screen Negative Ur Barbiturates Screen Negative Ur Phencyclidine Scrn Negative Ur Amphetamines Screen Negative U Benzodiazepines Scrn Negative Urine Cocaine Screen Negative U Marijuana (THC) Screen Positive Drugs of Abuse Note Disclamer Plasma/Serum Alcohol < 0.01 (0-0.07) % - EKG Data -: EKG Interpreted by Me EKG shows normal: sinus rhythm, ST-T waves (No STEMI) Rate: tachycardia (104) - Medical Decision Making 31-year-old male experiencing paranoia after methamphetamine abuse. Initial physical tachycardia and jittery feeling have improved. At time of disposition patient reports feeling better and is ready to be discharged. No significant lab abnormalities noted Critical Care Time: No Critical care attestation.: If time is entered above; I have spent that time in minutes in the direct care of this critically ill patient, excluding procedure time. ED Disposition Clinical Impression: Methamphetamine abuse, Paranoia Disposition: HOME / SELF CARE / HOMELESS Is pt being admited?: No Does the pt Need Aspirin: No Condition: Stable Instructions: Amphetamines Use Disorder, Substance Use Disorder and Mental Illness Additional Instructions: Follow-up with your doctor or doctor/clinic provided. Return if symptoms worsen as indicated by your discharge instructions. Professional and Agency Contacts To help Resolve Crises (19/03) [place] Crisis Line: Suicide Prevention Line: Crisis Text Line: Text ``START to 094412 Emergency: 911 SUBSTANCE ABUSE PROGRAMS: [facility]: Location: [place], [place] [employer] Address: [address] [place] [address] [facility] Recovery: Address: [address] [place] [address] [facility]: Address: [address] [place] [address] [facility]: Address: [address] [place] [address] Referrals: [facility] [Outside] - 3-5 Days [facility] [Provider Group] - 3-5 Days Time of Disposition: 08:03
[2022-04-05 08:05] VITALS: BP 157/94
--- NOTE | 2022-04-05 11:19 | Electrocardiograph Report ---
[facility] Test Date: 2022-04-05 Test Time: 04:32:09 Pat Name: SD YEUNG Department: Room: Gender: M Histopath Tech: EWA : 1990 Requested By: STACIA ESCOBAR Order Number: [id number] Reading MD: Brandon Jennings Measurements Intervals [place] Rate: 104 P: 72 HI: 151 QRS: 65 QRSD: 86 T: 29 QT: 353 QTc: 465 Interpretive Statements Sinus tachycardia Probable left atrial enlargement Compared to ECG 02/21/2022 03:45:58 No significant changes Electronically Signed On 04-05-2022 11:19:24 EDT by Brandon Jennings
== END 2022-04-05 15:00 | disposition home or self-care (01) ==
LOC: ED 03:28
DX: F15.10 Other stimulant abuse, uncomplicated (principal); F22 Delusional disorders; F17.200 Nicotine dependence, unspecified, uncomplicated; F10.20 Alcohol dependence, uncomplicated
CPT/HCPCS: 36415; 80053; 80307; 80320; 82550; 84439; 84443; 84484; 85025; 93005; 99284; G0480